=== PATIENT | female | born 1950 | race Caucasian/White ===

== ENCOUNTER → 2017-09-12 13:04 | Outpatient (CLI) | payer MEDICARE, OTHER, SELFPAY ==
--- NOTE | 2017-09-12 13:07 | VDLE_ITS ---
Reason For Study: venous insufficiency RIGHT LEFT CFV is compressible, spontaneous, phasic, CFV is compressible, spontaneous, phasic, competent and demonstrates normal competent, and demonstrates normal augmentation. augmentation. FV is compressible, spontaneous, phasic, FV is compressible, spontaneous, phasic, competent and demonstrates normal competent and demonstrates normal augmentation. augmentation. POP V is compressible, spontaneous, phasic, POP V is compressible, spontaneous, phasic, competent and demonstrates normal competent and demonstrates normal augmentation. augmentation. T/P Trunk is compressible. T/P Trunk is compressible. PTV is compressible. PTV is compressible. RT PerV is compressible. LT PerV is compressible. S-F Junction is competent. S-F Junction is competent. GSV is incompetent throughout for greater GSV is incompetent throughout for greater than .5 seconds. GSV measures .492 x .585 than .5 seconds. GSV measures .483 x .483 cm. cm. SSV is incompetent for greater than .5 SSV is competent. seconds. SSV measures .246 x .286 cm. ASV at the groin is incompetent for greater Procedure than .5 seconds. ASV measures .885 x .840 Exam performed in department. cm. The exam was diagnostic. Interpretation Summary Deep veins of the lower extremities are bilaterally patent and compressible segmentally. There is no evidence of deep vein thrombosis on either side. Valvular competence appears intact within the proximal deep venous systems bilaterally. The greater saphenous veins appear bilaterally patent and compressible segmentally. Sapheno-femoral junctions are bilaterally competent . Segmental valvular incompetence is noted within the greater saphenous veins bilaterally. The right small saphenous vein is patent and incompetent. The left small saphenous vein is patent and competent. The left accessory saphenous vein at the groin is incompetent. Ordering Physician: Kb Hay Performed By: Nadia, Dajuan, RVT
--- NOTE | 2017-09-15 10:54 | LEAS ---
Arterial Study - Arterial Study Arterial Study: This is a 67-year-old female with a history of peripheral arterial occlusive disease. The patient is brought to the noninvasive vascular laboratory at this time for the purpose of bilateral noninvasive lower extremity arterial assessment. Doppler signal assessment was used to evaluate the pulses at ankle level bilaterally. The posterior tibial and dorsalis pedis pulses were triphasic bilaterally. Segmental limb pressures were obtained bilaterally. The right ankle pressure, as determined by posterior tibial pulse, was measured at 196 mmHg. The right ankle pressure, as determined by dorsalis pedis pulse, was measured at 189 mmHg. The right digital pressure was measured at 167 mmHg. The left ankle pressure, as determined by posterior tibial pulse, was measured at 215 mmHg. The left ankle pressure, as determined by dorsalis pedis pulse, was measured at 217 mmHg. The left digital pressure was measured at 156 mmHg. Pulse-volume recordings were obtained bilaterally and segmentally. Waveform amplitudes appeared to be satisfactory at ankle level bilaterally, though slightly diminished at left digital level. Resting ankle-brachial indices were calculated bilaterally. The resting right ankle-brachial index was calculated to be 1.03. The resting left ankle-brachial index was calculated be 1.14. Digital-brachial indices were calculated bilaterally. The right digital-brachial index was calculated to be 0.87. The left digital-brachial index was calculated to be 0.82. Impression: Based upon the findings of this resting noninvasive lower extremity arterial study, there is no evidence of significant atherosclerotic peripheral arterial occlusive disease in the lower extremities bilaterally. Triphasic waveforms were noted at ankle level bilaterally. Resting ankle-brachial indices were bilaterally normal. Digital-brachial indices were also normal bilaterally. In summary, this represents a normal resting noninvasive lower extremity arterial study bilaterally.
--- NOTE | 2017-09-15 10:57 | LEAS_ITS ---
Arterial Study - Arterial Study Arterial Study: This is a 67-year-old female with a history of peripheral arterial occlusive disease. The patient is brought to the noninvasive vascular laboratory at this time for the purpose of bilateral noninvasive lower extremity arterial assessment. Doppler signal assessment was used to evaluate the pulses at ankle level bilaterally. The posterior tibial and dorsalis pedis pulses were triphasic bilaterally. Segmental limb pressures were obtained bilaterally. The right ankle pressure, as determined by posterior tibial pulse, was measured at 196 mmHg. The right ankle pressure, as determined by dorsalis pedis pulse, was measured at 189 mmHg. The right digital pressure was measured at 167 mmHg. The left ankle pressure, as determined by posterior tibial pulse, was measured at 215 mmHg. The left ankle pressure, as determined by dorsalis pedis pulse, was measured at 217 mmHg. The left digital pressure was measured at 156 mmHg. Pulse-volume recordings were obtained bilaterally and segmentally. Waveform amplitudes appeared to be satisfactory at ankle level bilaterally, though slightly diminished at left digital level. Resting ankle-brachial indices were calculated bilaterally. The resting right ankle-brachial index was calculated to be 1.03. The resting left ankle- brachial index was calculated be 1.14. Digital-brachial indices were calculated bilaterally. The right digital- brachial index was calculated to be 0.87. The left digital-brachial index was calculated to be 0.82. Impression: Based upon the findings of this resting noninvasive lower extremity arterial study, there is no evidence of significant atherosclerotic peripheral arterial occlusive disease in the lower extremities bilaterally. Triphasic waveforms were noted at ankle level bilaterally. Resting ankle-brachial indices were bilaterally normal. Digital-brachial indices were also normal bilaterally. In summary, this represents a normal resting noninvasive lower extremity arterial study bilaterally.
== END ==
PROVIDERS: Visit Provider Surgery
DX: I73.9 Peripheral vascular disease, unspecified (principal); M79.89 Other specified soft tissue disorders; M79.606 Pain in leg, unspecified; I87.2 Venous insufficiency (chronic) (peripheral); I83.10 Varicose veins of unspecified lower extremity with inflammation
CPT/HCPCS: 93922; 93970

== ENCOUNTER 2017-10-08 10:15 | Outpatient (RCR) | payer MEDICARE, OTHER, SELFPAY ==
[2017-09-17 09:04] VITALS: BP 173/83; PULSE 58; RESP 18; TEMP 36.3; BMI 88.9
--- NOTE | 2017-09-17 10:18 | PCM.WC.HP ---
(1) Chronic venous insufficiency Status: Chronic Current Visit: Yes Code(s): I87.2 - Venous insufficiency (chronic) (peripheral) (2) Varicose veins with inflammation Status: Chronic Current Visit: Yes Code(s): I83.10 - Varicose veins of unspecified lower extremity with inflammation (3) Pain in both lower legs Status: Chronic Current Visit: Yes Code(s): M79.661 - Pain in right lower leg; M79.662 - Pain in left lower leg (4) Leg swelling Status: Chronic Current Visit: Yes Code(s): M79.89 - Other specified soft tissue disorders (5) MVP (mitral valve prolapse) Status: Chronic Current Visit: No Code(s): I34.1 - Nonrheumatic mitral (valve) prolapse (6) Hyperlipidemia Status: Chronic Current Visit: No Code(s): E78.5 - Hyperlipidemia, unspecified (7) Arthritis Status: Chronic Current Visit: No Code(s): M19.90 - Unspecified osteoarthritis, unspecified site (8) Obesity Status: Chronic Current Visit: No Code(s): E66.9 - Obesity, unspecified (9) History of skin cancer Status: Chronic Current Visit: No Code(s): Z85.828 - Personal history of other malignant neoplasm of skin History of Present Illness Date of Service: 09/17/17 Chief Complaint: Venous insufficiency, varicose veins with inflammation, leg pain, leg swelling History of Wound: This is a 67-year-old female with a long-standing history of chronic venous insufficiency, varicose veins with inflammation, leg pain, and leg swelling in her lower extremities. Her symptoms have been present for over 3 years. She describes pain and discomfort in her lower extremities, associated with swelling. Her symptoms are more severe in the left lower extremity. The patient sleeps on a flat mattress at night. She wears knee-high graduated compression stockings of 15-20 mmHg compression daily. 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 She denies a history of thrombophlebitis. She has undergone no prior vein procedures in the past. Past Medical History Past Medical History: Chronic Problems (Last Updated 07/03/17 @ 09:57 by Ladi Huizar) Chronic venous insufficiency (Chronic) Varicose veins with inflammation (Chronic) Pain in both lower legs (Chronic) Leg swelling (Chronic) MVP (mitral valve prolapse) (Chronic) Hyperlipidemia (Chronic) Arthritis (Chronic) Obesity (Chronic) History of skin cancer (Chronic) Past Medical History: Patient has a history of mitral valve prolapse, basal cell skin cancer, and arthritis which affects her back and hands. She has a history of hyperlipidemia, but does not tolerate statin therapy. The patient's history is negative for congestive heart failure, myocardial infarction, hypertension, diabetes mellitus, cerebrovascular accident, renal disease, pulmonary disease, thyroid disease, gastroesophageal reflux disease, and peripheral arterial occlusive disease. Surgical History: - - The patient has undergone open reduction and internal fixation of a right ankle fracture approximately 10 years ago. She is a Ab0 Allergies/Adverse Reactions: Allergies hydrocodone Adverse Reaction (Verified 07/03/17 09:58) Other Home Medications: Ambulatory Orders Medication Instructions Recorded Ascorbic Acid/Ascorbate Sodium 500 mg PO 09/17/17 [Vit C-Palma Hips 500 mg Chew Tb] Horse [place] Seed [Horse 300 mg PO 09/17/17 [place]] - Family History Maternal Family History: Family History (Last Updated 07/03/17 @ 09:57 by Ladi Huizar) Mother Diabetes Heart disease Asthma - - The patient's father at the age of 72 with a history of heart disease and diabetes mellitus. Patient's mother is living, age 90, with a history of mitral valve prolapse and hyperlipidemia. Lives: Alone Smoking Status: Never smoker Tobacco Use: Non-smoker Alcohol: Occasional Drugs: None Review of Systems Constitutional: Denies: Chills, Fever, Weight Change Eyes: Denies: Pain, Vision Change HEENT: Denies: Difficulty Hearing, Difficulty Swallowing, Sinus Congestion Cardiovascular: Denies: Chest Pain, Palpitations Respiratory: Denies: Cough, Shortness of Breath Gastrointestinal: Denies: Diarrhea, Nausea, Vomiting Genitourinary: Denies: Dysuria, Hematuria Endocrine: Denies: Heat/ Cold Intolerance, Polydipsia, Polyuria Hematologic/ Lymphatic: Denies: Easy Bruising, Easy Bleeding - Physical Exam Vital Signs Temp Pulse Resp BP 97.3 F L 58 L 18 173/83 H 09/17/17 09:04 09/17/17 09:04 09/17/17 09:04 09/17/17 09:04 General: Alert, Oriented x3, Cooperative, No apparent distress, Well developed, Well nourished HEENT: Atraumatic, PERRLA, EOMI, Normocephalic Oral: Moist Mucosa, No Gingival or Mucosal Lesions/ Ulcerations Neck: Supple, No JVD, Negative Carotid Bruits, Negative Hepatojugular Reflux, No Nodes, No Nuchal Rigidity, Trachea Midline Lungs: Clear to auscultation, Normal air movement, No rhonchi, No wheeze, No rales Cardiovascular: Regular rate, Regular Rhythm, Normal S1, Normal S2, No murmurs, No Ectopic Activity Abdomen: Soft, Non Tender, Non-Distended Extremities: No clubbing, No cyanosis, No Calf Tenderness, - - Bilateral lower extremity edema is noted. Scattered varicosities are present. Numerous scattered excoriations are noted in the left lower extremity between the and ankle. Circumference measurements are documented elsewhere. No sign of infection or cellulitis. Wound Measurements and Assessment WC - Nurse 1 - General Ulcer Measurement Start: 09/17/17 08:50 Freq: Status: Active Protocol: Activity Type Activity Date Activity User E-Sign Co-Sign Detail Recorded Client Recorded Date Recorded By Document 09/17/17 09:04 DL [id number] 09/17/17 09:21 DL 09/17/17 09:04 Wound Center Nurse 1 [Ulcer Assessment] #1 LLE Cluster -Current Size (cm) - Length 19 -Current Size (cm) - Width 13 -Current Size (cm) - Depth 0.1 -Total Square Cm 247 -Photo Taken Yes -Classification - Thickness Partial Thickness -Exudate Amt None Present (0 %) -Wound Margin Indistinct, Non -Visible -Granulation Amt None Present (0 %) -Necrosis Amt Small (1-33%) -Necrotic Tissue Type Adherent Slough -Structure Exposed N/A -Texture (Sheyla-wound Skin Appearance) Excoriation -Moisture (Sheyla-wound Skin Appearance Dry/Scaly ) -Color (Sheyla-wound Skin Appearance) Hemosiderin Staining -Temperature (Sheyla-wound Skin No Abnormality Appearance) (Pt Warm) -Ulcer Cleansing Wound Cleanser [Edema Assessment] -Right Calf (cm) 44 -Right Ankle (cm) 25.5 -Left Calf (cm) 45 -Left Ankle (cm) 26 WC - Nurse 2 - General Ulcer CM Notes Start: 09/17/17 08:50 Freq: Status: Active Protocol: Activity Type Activity Date Activity User E-Sign Co-Sign Detail Recorded Client Recorded Date Recorded By Document 09/17/17 09:59 [id number] 09/17/17 10:12 09/17/17 09:59 Wound Center Nurse 2 [Procedure/Treatment] #1 [facility] Cluster -Time 09:59 -Correct Patient Yes -Correct Side, Site, Position Yes -Correct Procedure Yes -Wound/Ulcer Outcome Not Healed -Ulcer Cleansing Rinsed/ Irrigated with Saline -Foul Odor after Cleansing No -Bioengineered Tissue No -Bleeding Controlled with NA -Treatment Response Procedure Tolerated Well [See Physician Procedure note for Specifics] Pain Scale: 0-10 Numeric [Pain] -Is Patient Pain Free? Yes Musculoskeletal: No Muscle Wasting Neurological: Cranial nerves II-XII grossly intact, Neuro grossly intact Psych/Mental Status: Normal Affect, Appropriate, Alert and oriented to time, place, person, mood and affect Debridement Note Post-Debridement Measurements/Treatment WC - Nurse 2 - General Ulcer CM Notes Start: 09/17/17 08:50 Freq: Status: Active Protocol: Activity Type Activity Date Activity User E-Sign Co-Sign Detail Recorded Client Recorded Date Recorded By Document 09/17/17 09:59 [id number] 09/17/17 10:12 09/17/17 09:59 Wound Center Nurse 2 #1 [facility] Cluster -Time 09:59 -Correct Patient Yes -Correct Side, Site, Position Yes -Correct Procedure Yes -Wound/Ulcer Outcome Not Healed -Ulcer Cleansing Rinsed/ Irrigated with Saline -Foul Odor after Cleansing No -Bioengineered Tissue No -Bleeding Controlled with NA -Treatment Response Procedure Tolerated Well Pain Scale: 0-10 Numeric Is Patient Pain Free? Yes No debridement was completed today Assessment/Plan Active Problems (Last Updated 07/03/17 @ 09:57 by Ladi Huizar) Chronic venous insufficiency (Chronic) Varicose veins with inflammation (Chronic) Pain in both lower legs (Chronic) Leg swelling (Chronic) Assessment: This is a 67-year-old female with bilateral lower extremity swelling, edema, veins with inflammation, and chronic venous insufficiency. Other medical problems are listed above. The patient has undergone a venous duplex examination within the last week, revealing incompetence of the right great saphenous vein, the right small saphenous vein, the left great saphenous vein, and the left accessory saphenous vein. A noninvasive lower extremity arterial study reveals no evidence of significant arterial occlusive disease. Plan: We are to implement conservative treatment measures relative to the patient's lower extremity venous disease. These measures have been discussed with the patient thoroughly. She is to avoid idle standing and sitting. She is to remain active. Weight loss has been recommended, and the patient has lost 10 pounds in recent weeks. The patient is to elevate her lower extremities as much as possible, and to continue sleeping in a recumbent position at night. We are to initiate the use of compression to the lower extremities. In the right lower extremity, we are to use a 3M 2 layer compression wrap. A multilayer Unna boot will be used in the left lower extremity. Patient will return twice weekly for change of her wraps. Return in 1 week for reevaluation. Influenza vaccine was not administered today. The patient is not a smoker. She weighs 235 pounds. She stands 5 feet 4 inches tall. BMI is 40.3. This places her in a class III category, and weight loss has been recommended. She has been advised to collaborate with her primary care physician in terms of weight loss options.
--- NOTE | 2017-09-17 10:29 | HP.PCM_ITS ---
(1) Chronic venous insufficiency Status: Chronic Current Visit: Yes Code(s): I87.2 - Venous insufficiency ( chronic) (peripheral) (2) Varicose veins with inflammation Status: Chronic Current Visit: Yes Code(s): I83.10 - Varicose veins of unspecified lower extremity with inflammation (3) Pain in both lower legs Status: Chronic Current Visit: Yes Code(s): M79.661 - Pain in right lower leg; M79.662 - Pain in left lower leg (4) Leg swelling Status: Chronic Current Visit: Yes Code(s): M79.89 - Other specified soft tissue disorders (5) MVP (mitral valve prolapse) Status: Chronic Current Visit: No Code(s): I34.1 - Nonrheumatic mitral ( valve) prolapse (6) Hyperlipidemia Status: Chronic Current Visit: No Code(s): E78.5 - Hyperlipidemia, unspecified (7) Arthritis Status: Chronic Current Visit: No Code(s): M19.90 - Unspecified osteoarthritis, unspecified site (8) Obesity Status: Chronic Current Visit: No Code(s): E66.9 - Obesity, unspecified (9) History of skin cancer Status: Chronic Current Visit: No Code(s): Z85.828 - Personal history of other malignant neoplasm of skin History of Present Illness Date of Service: 09/17/17 Chief Complaint: Venous insufficiency, varicose veins with inflammation, leg pain, leg swelling History of Wound: This is a 67-year-old female with a long-standing history of chronic venous insufficiency, varicose veins with inflammation, leg pain, and leg swelling in her lower extremities. Her symptoms have been present for over 3 years. She describes pain and discomfort in her lower extremities, associated with swelling. Her symptoms are more severe in the left lower extremity. The patient sleeps on a flat mattress at night. She wears knee- high graduated compression stockings of 15-20 mmHg compression daily. 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 She denies a history of thrombophlebitis. She has undergone no prior vein procedures in the past. Past Medical History Past Medical History: Chronic Problems (Last Updated 07/03/17 @ 09:57 by Ladi Huizar) Chronic venous insufficiency (Chronic) Varicose veins with inflammation (Chronic) Pain in both lower legs (Chronic) Leg swelling (Chronic) MVP (mitral valve prolapse) (Chronic) Hyperlipidemia (Chronic) Arthritis (Chronic) Obesity (Chronic) History of skin cancer (Chronic) Past Medical History: Patient has a history of mitral valve prolapse, basal cell skin cancer, and arthritis which affects her back and hands. She has a history of hyperlipidemia, but does not tolerate statin therapy. The patient's history is negative for congestive heart failure, myocardial infarction, hypertension, diabetes mellitus, cerebrovascular accident, renal disease, pulmonary disease, thyroid disease, gastroesophageal reflux disease, and peripheral arterial occlusive disease. Surgical History: - - The patient has undergone open reduction and internal fixation of a right ankle fracture approximately 10 years ago. She is a Ab0 Allergies/Adverse Reactions: Allergies hydrocodone Adverse Reaction (Verified 07/03/17 09:58) Other Home Medications: Ambulatory Orders Medication Instructions Recorded Ascorbic Acid/Ascorbate Sodium 500 mg PO 09/17/17 [Vit C-Palma Hips 500 mg Chew Tb] Horse [place] Seed [Horse 300 mg PO 09/17/17 [place]] - Family History Maternal Family History: Family History (Last Updated 07/03/17 @ 09:57 by Ladi Huizar) Mother Diabetes Heart disease Asthma - - The patient's father at the age of 72 with a history of heart disease and diabetes mellitus. Patient's mother is living, age 90, with a history of mitral valve prolapse and hyperlipidemia. Lives: Alone Smoking Status: Never smoker Tobacco Use: Non-smoker Alcohol: Occasional Drugs: None Review of Systems Constitutional: Denies: Chills, Fever, Weight Change Eyes: Denies: Pain, Vision Change HEENT: Denies: Difficulty Hearing, Difficulty Swallowing, Sinus Congestion Cardiovascular: Denies: Chest Pain, Palpitations Respiratory: Denies: Cough, Shortness of Breath Gastrointestinal: Denies: Diarrhea, Nausea, Vomiting Genitourinary: Denies: Dysuria, Hematuria Endocrine: Denies: Heat/ Cold Intolerance, Polydipsia, Polyuria Hematologic/ Lymphatic: Denies: Easy Bruising, Easy Bleeding - Physical Exam Vital Signs Temp Pulse Resp BP 97.3 F L 58 L 18 173/83 H 09/17/17 09:04 09/17/17 09:04 09/17/17 09:04 09/17/17 09:04 General: Alert, Oriented x3, Cooperative, No apparent distress, Well developed, Well nourished HEENT: Atraumatic, PERRLA, EOMI, Normocephalic Oral: Moist Mucosa, No Gingival or Mucosal Lesions/ Ulcerations Neck: Supple, No JVD, Negative Carotid Bruits, Negative Hepatojugular Reflux, No Nodes, No Nuchal Rigidity, Trachea Midline Lungs: Clear to auscultation, Normal air movement, No rhonchi, No wheeze, No rales Cardiovascular: Regular rate, Regular Rhythm, Normal S1, Normal S2, No murmurs, No Ectopic Activity Abdomen: Soft, Non Tender, Non-Distended Extremities: No clubbing, No cyanosis, No Calf Tenderness, - - Bilateral lower extremity edema is noted. Scattered varicosities are present. Numerous scattered excoriations are noted in the left lower extremity between the and ankle. Circumference measurements are documented elsewhere. No sign of infection or cellulitis. Wound Measurements and Assessment WC - Nurse 1 - General Ulcer Measurement Start: 09/17/17 08:50 Freq: Status: Active Protocol: Activity Type Activity Date Activity User E-Sign Co-Sign Detail Recorded Client Recorded Date Recorded By Document 09/17/17 09:04 DL [id number] 09/17/17 09:21 DL 09/17/17 09:04 Wound Center Nurse 1 [Ulcer Assessment] #1 LLE Cluster -Current Size (cm) - Length 19 -Current Size (cm) - Width 13 -Current Size (cm) - Depth 0.1 -Total Square Cm 247 -Photo Taken Yes -Classification - Thickness Partial Thickness -Exudate Amt None Present (0 %) -Wound Margin Indistinct, Non -Visible -Granulation Amt None Present (0 %) -Necrosis Amt Small (1-33%) -Necrotic Tissue Type Adherent Slough -Structure Exposed N/A -Texture (Sheyla-wound Skin Appearance) Excoriation -Moisture (Sheyla-wound Skin Appearance Dry/Scaly ) -Color (Sheyla-wound Skin Appearance) Hemosiderin Staining -Temperature (Sheyla-wound Skin No Abnormality Appearance) (Pt Warm) -Ulcer Cleansing Wound Cleanser [Edema Assessment] -Right Calf (cm) 44 -Right Ankle (cm) 25.5 -Left Calf (cm) 45 -Left Ankle (cm) 26 WC - Nurse 2 - General Ulcer CM Notes Start: 09/17/17 08:50 Freq: Status: Active Protocol: Activity Type Activity Date Activity User E-Sign Co-Sign Detail Recorded Client Recorded Date Recorded By Document 09/17/17 09:59 [email or web address] 09/17/17 10:12 09/17/17 09:59 Wound Center Nurse 2 [Procedure/Treatment] #1 [facility] Cluster -Time 09:59 -Correct Patient Yes -Correct Side, Site, Position Yes -Correct Procedure Yes -Wound/Ulcer Outcome Not Healed -Ulcer Cleansing Rinsed/ Irrigated with Saline -Foul Odor after Cleansing No -Bioengineered Tissue No -Bleeding Controlled with NA -Treatment Response Procedure Tolerated Well [See Physician Procedure note for Specifics] Pain Scale: 0-10 Numeric [Pain] -Is Patient Pain Free? Yes Musculoskeletal: No Muscle Wasting Neurological: Cranial nerves II-XII grossly intact, Neuro grossly intact Psych/Mental Status: Normal Affect, Appropriate, Alert and oriented to time, place, person, mood and affect Debridement Note Post-Debridement Measurements/Treatment WC - Nurse 2 - General Ulcer CM Notes Start: 09/17/17 08:50 Freq: Status: Active Protocol: Activity Type Activity Date Activity User E-Sign Co-Sign Detail Recorded Client Recorded Date Recorded By Document 09/17/17 09:59 [id number] 09/17/17 10:12 09/17/17 09:59 Wound Center Nurse 2 #1 [facility] Cluster -Time 09:59 -Correct Patient Yes -Correct Side, Site, Position Yes -Correct Procedure Yes -Wound/Ulcer Outcome Not Healed -Ulcer Cleansing Rinsed/ Irrigated with Saline -Foul Odor after Cleansing No -Bioengineered Tissue No -Bleeding Controlled with NA -Treatment Response Procedure Tolerated Well Pain Scale: 0-10 Numeric Is Patient Pain Free? Yes No debridement was completed today Assessment/Plan Active Problems (Last Updated 07/03/17 @ 09:57 by Ladi Huizar) Chronic venous insufficiency (Chronic) Varicose veins with inflammation (Chronic) Pain in both lower legs (Chronic) Leg swelling (Chronic) Assessment: This is a 67-year-old female with bilateral lower extremity swelling , edema, veins with inflammation, and chronic venous insufficiency. Other medical problems are listed above. The patient has undergone a venous duplex examination within the last week, revealing incompetence of the right great saphenous vein, the right small saphenous vein, the left great saphenous vein, and the left accessory saphenous vein. A noninvasive lower extremity arterial study reveals no evidence of significant arterial occlusive disease. Plan: We are to implement conservative treatment measures relative to the patient's lower extremity venous disease. These measures have been discussed with the patient thoroughly. She is to avoid idle standing and sitting. She is to remain active. Weight loss has been recommended, and the patient has lost 10 pounds in recent weeks. The patient is to elevate her lower extremities as much as possible, and to continue sleeping in a recumbent position at night. We are to initiate the use of compression to the lower extremities. In the right lower extremity, we are to use a 3M 2 layer compression wrap. A multilayer Unna boot will be used in the left lower extremity. Patient will return twice weekly for change of her wraps. Return in 1 week for reevaluation. Influenza vaccine was not administered today. The patient is not a smoker. She weighs 235 pounds. She stands 5 feet 4 inches tall. BMI is 40.3. This places her in a class III category, and weight loss has been recommended. She has been advised to collaborate with her primary care physician in terms of weight loss options.
[2017-09-18 15:46] VITALS: BP 161/87; PULSE 67; RESP 20; TEMP 36.4; BMI 88.9
--- NOTE | 2017-09-19 10:52 | WC ---
09/18/17 AM: Call received from patient voicing concerns over getting her leg wraps wet. 3M 2 Layer wrap applied to the RLE, and UNNA Boot to the LLE applied on Saturday after seeing Dr. Hay. Instructions given to patient in regards to keeping dressings dry and not getting wet. She did verify understanding of this teaching prior discharge from her first visit on Saturday. 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 She applied this to her legs, but was not able to get a good enough seal at the top of her lower legs when she showered. Unna boot removed from the LLE showing marked improvement over Saturday's exam. Reinstructed not to get wraps wet. She is to return on Saturday for compression wrap changes. She was told to removed compression wraps, shower, and come in for her nurse visit. Understanding was acknowledged.
[2017-09-20 13:14] VITALS: BP 184/80; PULSE 65; RESP 18; TEMP 35.5; BMI 88.9
[2017-09-24 08:09] VITALS: BP 188/91; PULSE 61; RESP 18; TEMP 35.8; BMI 88.9
--- NOTE | 2017-09-24 08:32 | PCM.WC.HP ---
(1) Chronic venous insufficiency Status: Chronic Current Visit: Yes Code(s): I87.2 - Venous insufficiency (chronic) (peripheral) (2) Varicose veins with inflammation Status: Chronic Current Visit: Yes Code(s): I83.10 - Varicose veins of unspecified lower extremity with inflammation (3) Pain in both lower legs Status: Chronic Current Visit: Yes Code(s): M79.661 - Pain in right lower leg; M79.662 - Pain in left lower leg (4) Leg swelling Status: Chronic Current Visit: Yes Code(s): M79.89 - Other specified soft tissue disorders (5) MVP (mitral valve prolapse) Status: Chronic Current Visit: No Code(s): I34.1 - Nonrheumatic mitral (valve) prolapse (6) Hyperlipidemia Status: Chronic Current Visit: No Code(s): E78.5 - Hyperlipidemia, unspecified (7) Arthritis Status: Chronic Current Visit: No Code(s): M19.90 - Unspecified osteoarthritis, unspecified site (8) Obesity Status: Chronic Current Visit: No Code(s): E66.9 - Obesity, unspecified (9) History of skin cancer Status: Chronic Current Visit: No Code(s): Z85.828 - Personal history of other malignant neoplasm of skin History of Present Illness Date of Service: 09/24/17 Chief Complaint: Venous insufficiency, varicose veins with inflammation, leg pain, leg swelling History of Wound: This is a 67-year-old female with a long-standing history of chronic venous insufficiency, varicose veins with inflammation, leg pain, and leg swelling in her lower extremities. Her symptoms have been present for over 3 years. She describes pain and discomfort in her lower extremities, associated with swelling. Her symptoms are more severe in the left lower extremity. The patient sleeps on a flat mattress at night. She wears knee-high graduated compression stockings of 15-20 mmHg compression daily. 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 She denies a history of thrombophlebitis. She has undergone no prior vein procedures in the past. She initially presented with superficial ulcerations on the left calf, which were a manifestation of her chronic venous disease. As result of initial management, which have included compression wraps, and the use of an Unna boot in the left lower extremity, there has been significant improvement. Past Medical History Past Medical History: Chronic Problems (Last Updated 07/03/17 @ 09:57 by Ladi Huizar) Chronic venous insufficiency (Chronic) Varicose veins with inflammation (Chronic) Pain in both lower legs (Chronic) Leg swelling (Chronic) MVP (mitral valve prolapse) (Chronic) Hyperlipidemia (Chronic) Arthritis (Chronic) Obesity (Chronic) History of skin cancer (Chronic) Surgical History: - - The patient has undergone open reduction and internal fixation of a right ankle fracture approximately 10 years ago. She is a Ab0 Allergies/Adverse Reactions: Allergies hydrocodone Adverse Reaction (Verified 07/03/17 09:58) Other Home Medications: Ambulatory Orders Medication Instructions Recorded Ascorbic Acid/Ascorbate Sodium 500 mg PO 09/17/17 [Vit C-Palma Hips 500 mg Chew Tb] Horse [place] Seed [Horse 300 mg PO 09/17/17 [place]] - Family History Maternal Family History: Family History (Last Updated 07/03/17 @ 09:57 by Ladi Huizar) Mother Diabetes Heart disease Asthma - - The patient's father at the age of 72 with a history of heart disease and diabetes mellitus. Patient's mother is living, age 90, with a history of mitral valve prolapse and hyperlipidemia. Lives: Alone Smoking Status: Never smoker Tobacco Use: Non-smoker Alcohol: Occasional Drugs: None Review of Systems Constitutional: Denies: Chills, Fever, Weight Change Eyes: Denies: Pain, Vision Change HEENT: Denies: Difficulty Hearing, Difficulty Swallowing, Sinus Congestion Cardiovascular: Denies: Chest Pain, Palpitations Respiratory: Denies: Cough, Shortness of Breath Gastrointestinal: Denies: Diarrhea, Nausea, Vomiting Genitourinary: Denies: Dysuria, Hematuria Endocrine: Denies: Heat/ Cold Intolerance, Polydipsia, Polyuria Hematologic/ Lymphatic: Denies: Easy Bruising, Easy Bleeding - Physical Exam Vital Signs Temp Pulse Resp BP 96.5 F L 61 18 188/91 H 09/24/17 08:09 09/24/17 08:09 09/24/17 08:09 09/24/17 08:09 General: Alert, Oriented x3, Cooperative, No apparent distress, Well developed, Well nourished HEENT: Atraumatic, PERRLA, EOMI, Normocephalic Oral: Moist Mucosa Neck: No JVD Lungs: Normal air movement Abdomen: Non-Distended Extremities: No clubbing, No cyanosis, No Calf Tenderness, - - The swelling and edema in the lower extremities is much improved. Additionally, the superficial ulcerations in the left lower extremity are also much improved, and now nearly resolved. Circumference measurements are documented elsewhere. Wound Measurements and Assessment WC - Nurse 1 - General Ulcer Measurement Start: 09/17/17 08:50 Freq: Status: Active Protocol: Activity Type Activity Date Activity User E-Sign Co-Sign Detail Recorded Client Recorded Date Recorded By Document 09/24/17 08:09 DL [id number] 09/24/17 08:15 DL 09/24/17 08:09 Wound Center Nurse 1 [Ulcer Assessment] #1 LLE Cluster -Current Size (cm) - Length 23 -Current Size (cm) - Width 12.5 -Current Size (cm) - Depth 0.1 -Total Square Cm 287.5 -Photo Taken No -Exudate Amt None Present (0 %) -Wound Margin Indistinct, Non -Visible -Granulation Amt Large (67-100%) -Granulation Quality [place] -Necrosis Amt None Present (0 %) -Structure Exposed N/A -Texture (Sheyla-wound Skin Appearance) Excoriation Scarring -Moisture (Sheyla-wound Skin Appearance Dry/Scaly ) -Color (Sheyla-wound Skin Appearance) No Abnormality -Temperature (Sheyla-wound Skin No Abnormality Appearance) (Pt Warm) -Tenderness on Palpation (Sheyla-wound No Skin Appearance) -Ulcer Cleansing Not Cleansed -Foul Odor after Cleansing No [Edema Assessment] -Right Calf (cm) 44.2 -Right Ankle (cm) 25.5 -Left Calf (cm) 45 -Left Ankle (cm) 25.1 WC - Nurse 2 - General Ulcer CM Notes Start: 09/17/17 08:50 Freq: Status: Active Protocol: Activity Type Activity Date Activity User E-Sign Co-Sign Detail Recorded Client Recorded Date Recorded By Document 09/24/17 08:24 JS [id number] 09/24/17 08:27 JS 09/24/17 08:24 Wound Center Nurse 2 [Procedure/Treatment] #1 LLE Cluster -Time 08:26 -Correct Patient Yes -Correct Side, Site, Position Yes -Correct Procedure Yes -Procedure Performed No -Wound/Ulcer Outcome Not Healed -Ulcer Cleansing Not Cleansed -Foul Odor after Cleansing No -Bioengineered Tissue No [See Physician Procedure note for Specifics] Pain Scale: 0-10 Numeric [Pain] -Is Patient Pain Free? Yes Musculoskeletal: No Muscle Wasting Neurological: Cranial nerves II-XII grossly intact, Neuro grossly intact Psych/Mental Status: Normal Affect, Appropriate, Alert and oriented to time, place, person, mood and affect Debridement Note Post-Debridement Measurements/Treatment WC - Nurse 2 - General Ulcer CM Notes Start: 09/17/17 08:50 Freq: Status: Active Protocol: Activity Type Activity Date Activity User E-Sign Co-Sign Detail Recorded Client Recorded Date Recorded By Document 09/17/17 09:59 [id number] 09/17/17 10:12 JS Document 09/24/17 08:24 [id number] 09/24/17 08:27 JS 09/17/17 09/24/17 09:59 08:24 Wound Center Nurse 2 #1 LLE Cluster -Time 09:59 08:26 -Correct Patient Yes Yes -Correct Side, Site, Position Yes Yes -Correct Procedure Yes Yes -Procedure Performed No -Wound/Ulcer Outcome Not Healed Not Healed -Ulcer Cleansing Rinsed/ Not Cleansed Irrigated with Saline -Foul Odor after Cleansing No No -Bioengineered Tissue No No -Bleeding Controlled with NA -Treatment Response Procedure Tolerated Well Pain Scale: 0-10 Numeric Is Patient Pain Free? Yes Yes No debridement was completed today Assessment/Plan Active Problems (Last Updated 07/03/17 @ 09:57 by Ladi Huizar) Chronic venous insufficiency (Chronic) Varicose veins with inflammation (Chronic) Pain in both lower legs (Chronic) Leg swelling (Chronic) Assessment: This is a 67-year-old female with bilateral lower extremity swelling, edema, veins with inflammation, and chronic venous insufficiency. Other medical problems are listed above. The patient has undergone a venous duplex examination within the last week, revealing incompetence of the right great saphenous vein, the right small saphenous vein, the left great saphenous vein, and the left accessory saphenous vein. A noninvasive lower extremity arterial study reveals no evidence of significant arterial occlusive disease. As a result of compression wraps implemented to both lower extremities, an Unna boot in the left lower extremity, and other conservative measures which have included leg elevation, avoidance of idle standing and sitting, active lifestyle, and efforts at weight loss, there has been significant improvement. The patient's venous disease appears to cause itching, and reactive scratching on the part of the patient has, in the past, contributed to the development of excoriations and ulcerations. The use of compression wraps, remaining in place daily, appears to thwart her impulse to scratch. Additionally, the patient relates restlessness in her lower extremities, which may well be related to her chronic venous disease. Plan: We are to continue conservative treatment measures relative to the patient's lower extremity venous disease. These measures have been discussed with the patient thoroughly. She is to avoid idle standing and sitting. She is to remain active. Weight loss has been recommended, and the patient has lost 10 pounds in recent weeks. The patient is to elevate her lower extremities as much as possible, and to continue sleeping in a recumbent position at night. We are to continue the use of compression to the lower extremities. In the right lower extremity, we are to use a 3M 2 layer compression wrap. A multilayer Unna boot will be used in the left lower extremity. Patient will return twice weekly for change of her wraps. Return in 1 week for reevaluation. Influenza vaccine was not administered today. The patient is not a smoker. She weighs 235 pounds. She stands 5 feet 4 inches tall. BMI is 40.3. This places her in a class III category, and weight loss has been recommended. She has been advised to collaborate with her primary care physician in terms of weight loss options.
--- NOTE | 2017-09-24 08:39 | HP.PCM_ITS ---
(1) Chronic venous insufficiency Status: Chronic Current Visit: Yes Code(s): I87.2 - Venous insufficiency ( chronic) (peripheral) (2) Varicose veins with inflammation Status: Chronic Current Visit: Yes Code(s): I83.10 - Varicose veins of unspecified lower extremity with inflammation (3) Pain in both lower legs Status: Chronic Current Visit: Yes Code(s): M79.661 - Pain in right lower leg; M79.662 - Pain in left lower leg (4) Leg swelling Status: Chronic Current Visit: Yes Code(s): M79.89 - Other specified soft tissue disorders (5) MVP (mitral valve prolapse) Status: Chronic Current Visit: No Code(s): I34.1 - Nonrheumatic mitral ( valve) prolapse (6) Hyperlipidemia Status: Chronic Current Visit: No Code(s): E78.5 - Hyperlipidemia, unspecified (7) Arthritis Status: Chronic Current Visit: No Code(s): M19.90 - Unspecified osteoarthritis, unspecified site (8) Obesity Status: Chronic Current Visit: No Code(s): E66.9 - Obesity, unspecified (9) History of skin cancer Status: Chronic Current Visit: No Code(s): Z85.828 - Personal history of other malignant neoplasm of skin History of Present Illness Date of Service: 09/24/17 Chief Complaint: Venous insufficiency, varicose veins with inflammation, leg pain, leg swelling History of Wound: This is a 67-year-old female with a long-standing history of chronic venous insufficiency, varicose veins with inflammation, leg pain, and leg swelling in her lower extremities. Her symptoms have been present for over 3 years. She describes pain and discomfort in her lower extremities, associated with swelling. Her symptoms are more severe in the left lower extremity. The patient sleeps on a flat mattress at night. She wears knee- high graduated compression stockings of 15-20 mmHg compression daily. 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 She denies a history of thrombophlebitis. She has undergone no prior vein procedures in the past. She initially presented with superficial ulcerations on the left calf, which were a manifestation of her chronic venous disease. As result of initial management, which have included compression wraps, and the use of an Unna boot in the left lower extremity, there has been significant improvement. Past Medical History Past Medical History: Chronic Problems (Last Updated 07/03/17 @ 09:57 by Ladi Huizar) Chronic venous insufficiency (Chronic) Varicose veins with inflammation (Chronic) Pain in both lower legs (Chronic) Leg swelling (Chronic) MVP (mitral valve prolapse) (Chronic) Hyperlipidemia (Chronic) Arthritis (Chronic) Obesity (Chronic) History of skin cancer (Chronic) Surgical History: - - The patient has undergone open reduction and internal fixation of a right ankle fracture approximately 10 years ago. She is a Ab0 Allergies/Adverse Reactions: Allergies hydrocodone Adverse Reaction (Verified 07/03/17 09:58) Other Home Medications: Ambulatory Orders Medication Instructions Recorded Ascorbic Acid/Ascorbate Sodium 500 mg PO 09/17/17 [Vit C-Palma Hips 500 mg Chew Tb] Horse [place] Seed [Horse 300 mg PO 09/17/17 [place]] - Family History Maternal Family History: Family History (Last Updated 07/03/17 @ 09:57 by Ladi Huizar) Mother Diabetes Heart disease Asthma - - The patient's father at the age of 72 with a history of heart disease and diabetes mellitus. Patient's mother is living, age 90, with a history of mitral valve prolapse and hyperlipidemia. Lives: Alone Smoking Status: Never smoker Tobacco Use: Non-smoker Alcohol: Occasional Drugs: None Review of Systems Constitutional: Denies: Chills, Fever, Weight Change Eyes: Denies: Pain, Vision Change HEENT: Denies: Difficulty Hearing, Difficulty Swallowing, Sinus Congestion Cardiovascular: Denies: Chest Pain, Palpitations Respiratory: Denies: Cough, Shortness of Breath Gastrointestinal: Denies: Diarrhea, Nausea, Vomiting Genitourinary: Denies: Dysuria, Hematuria Endocrine: Denies: Heat/ Cold Intolerance, Polydipsia, Polyuria Hematologic/ Lymphatic: Denies: Easy Bruising, Easy Bleeding - Physical Exam Vital Signs Temp Pulse Resp BP 96.5 F L 61 18 188/91 H 09/24/17 08:09 09/24/17 08:09 09/24/17 08:09 09/24/17 08:09 General: Alert, Oriented x3, Cooperative, No apparent distress, Well developed, Well nourished HEENT: Atraumatic, PERRLA, EOMI, Normocephalic Oral: Moist Mucosa Neck: No JVD Lungs: Normal air movement Abdomen: Non-Distended Extremities: No clubbing, No cyanosis, No Calf Tenderness, - - The swelling and edema in the lower extremities is much improved. Additionally, the superficial ulcerations in the left lower extremity are also much improved, and now nearly resolved. Circumference measurements are documented elsewhere. Wound Measurements and Assessment WC - Nurse 1 - General Ulcer Measurement Start: 09/17/17 08:50 Freq: Status: Active Protocol: Activity Type Activity Date Activity User E-Sign Co-Sign Detail Recorded Client Recorded Date Recorded By Document 09/24/17 08:09 DL [id number] 09/24/17 08:15 DL 09/24/17 08:09 Wound Center Nurse 1 [Ulcer Assessment] #1 LLE Cluster -Current Size (cm) - Length 23 -Current Size (cm) - Width 12.5 -Current Size (cm) - Depth 0.1 -Total Square Cm 287.5 -Photo Taken No -Exudate Amt None Present (0 %) -Wound Margin Indistinct, Non -Visible -Granulation Amt Large (67-100%) -Granulation Quality [place] -Necrosis Amt None Present (0 %) -Structure Exposed N/A -Texture (Sheyla-wound Skin Appearance) Excoriation Scarring -Moisture (Sheyla-wound Skin Appearance Dry/Scaly ) -Color (Sheyla-wound Skin Appearance) No Abnormality -Temperature (Sheyla-wound Skin No Abnormality Appearance) (Pt Warm) -Tenderness on Palpation (Sheyla-wound No Skin Appearance) -Ulcer Cleansing Not Cleansed -Foul Odor after Cleansing No [Edema Assessment] -Right Calf (cm) 44.2 -Right Ankle (cm) 25.5 -Left Calf (cm) 45 -Left Ankle (cm) 25.1 WC - Nurse 2 - General Ulcer CM Notes Start: 09/17/17 08:50 Freq: Status: Active Protocol: Activity Type Activity Date Activity User E-Sign Co-Sign Detail Recorded Client Recorded Date Recorded By Document 09/24/17 08:24 JS [id number] 09/24/17 08:27 JS 09/24/17 08:24 Wound Center Nurse 2 [Procedure/Treatment] #1 LLE Cluster -Time 08:26 -Correct Patient Yes -Correct Side, Site, Position Yes -Correct Procedure Yes -Procedure Performed No -Wound/Ulcer Outcome Not Healed -Ulcer Cleansing Not Cleansed -Foul Odor after Cleansing No -Bioengineered Tissue No [See Physician Procedure note for Specifics] Pain Scale: 0-10 Numeric [Pain] -Is Patient Pain Free? Yes Musculoskeletal: No Muscle Wasting Neurological: Cranial nerves II-XII grossly intact, Neuro grossly intact Psych/Mental Status: Normal Affect, Appropriate, Alert and oriented to time, place, person, mood and affect Debridement Note Post-Debridement Measurements/Treatment WC - Nurse 2 - General Ulcer CM Notes Start: 09/17/17 08:50 Freq: Status: Active Protocol: Activity Type Activity Date Activity User E-Sign Co-Sign Detail Recorded Client Recorded Date Recorded By Document 09/17/17 09:59 [id number] 09/17/17 10:12 JS Document 09/24/17 08:24 [id number] 09/24/17 08:27 JS 09/17/17 09/24/17 09:59 08:24 Wound Center Nurse 2 #1 LLE Cluster -Time 09:59 08:26 -Correct Patient Yes Yes -Correct Side, Site, Position Yes Yes -Correct Procedure Yes Yes -Procedure Performed No -Wound/Ulcer Outcome Not Healed Not Healed -Ulcer Cleansing Rinsed/ Not Cleansed Irrigated with Saline -Foul Odor after Cleansing No No -Bioengineered Tissue No No -Bleeding Controlled with NA -Treatment Response Procedure Tolerated Well Pain Scale: 0-10 Numeric Is Patient Pain Free? Yes Yes No debridement was completed today Assessment/Plan Active Problems (Last Updated 07/03/17 @ 09:57 by Ladi Huizar) Chronic venous insufficiency (Chronic) Varicose veins with inflammation (Chronic) Pain in both lower legs (Chronic) Leg swelling (Chronic) Assessment: This is a 67-year-old female with bilateral lower extremity swelling , edema, veins with inflammation, and chronic venous insufficiency. Other medical problems are listed above. The patient has undergone a venous duplex examination within the last week, revealing incompetence of the right great saphenous vein, the right small saphenous vein, the left great saphenous vein, and the left accessory saphenous vein. A noninvasive lower extremity arterial study reveals no evidence of significant arterial occlusive disease. As a result of compression wraps implemented to both lower extremities, an Unna boot in the left lower extremity, and other conservative measures which have included leg elevation, avoidance of idle standing and sitting, active lifestyle , and efforts at weight loss, there has been significant improvement. The patient's venous disease appears to cause itching, and reactive scratching on the part of the patient has, in the past, contributed to the development of excoriations and ulcerations. The use of compression wraps, remaining in place daily, appears to thwart her impulse to scratch. Additionally, the patient relates restlessness in her lower extremities, which may well be related to her chronic venous disease. Plan: We are to continue conservative treatment measures relative to the patient 's lower extremity venous disease. These measures have been discussed with the patient thoroughly. She is to avoid idle standing and sitting. She is to remain active. Weight loss has been recommended, and the patient has lost 10 pounds in recent weeks. The patient is to elevate her lower extremities as much as possible, and to continue sleeping in a recumbent position at night. We are to continue the use of compression to the lower extremities. In the right lower extremity, we are to use a 3M 2 layer compression wrap. A multilayer Unna boot will be used in the left lower extremity. Patient will return twice weekly for change of her wraps. Return in 1 week for reevaluation. Influenza vaccine was not administered today. The patient is not a smoker. She weighs 235 pounds. She stands 5 feet 4 inches tall. BMI is 40.3. This places her in a class III category, and weight loss has been recommended. She has been advised to collaborate with her primary care physician in terms of weight loss options.
[2017-09-27 12:36] VITALS: BP 166/71; PULSE 81; RESP 16; TEMP 36.2; BMI 88.9
[2017-10-01 08:16] VITALS: BP 83/53; PULSE 66; RESP 18; TEMP 35.8; BMI 88.9
--- NOTE | 2017-10-01 08:51 | PCM.WC.HP ---
(1) Chronic venous insufficiency Status: Chronic Current Visit: Yes Code(s): I87.2 - Venous insufficiency (chronic) (peripheral) (2) Varicose veins with inflammation Status: Chronic Current Visit: Yes Code(s): I83.10 - Varicose veins of unspecified lower extremity with inflammation (3) Pain in both lower legs Status: Chronic Current Visit: Yes Code(s): M79.661 - Pain in right lower leg; M79.662 - Pain in left lower leg (4) Leg swelling Status: Chronic Current Visit: Yes Code(s): M79.89 - Other specified soft tissue disorders (5) MVP (mitral valve prolapse) Status: Chronic Current Visit: No Code(s): I34.1 - Nonrheumatic mitral (valve) prolapse (6) Hyperlipidemia Status: Chronic Current Visit: No Code(s): E78.5 - Hyperlipidemia, unspecified (7) Arthritis Status: Chronic Current Visit: No Code(s): M19.90 - Unspecified osteoarthritis, unspecified site (8) Obesity Status: Chronic Current Visit: No Code(s): E66.9 - Obesity, unspecified (9) History of skin cancer Status: Chronic Current Visit: No Code(s): Z85.828 - Personal history of other malignant neoplasm of skin (10) Lichen planus Status: Acute Current Visit: Yes Code(s): L43.9 - Lichen planus, unspecified History of Present Illness Date of Service: 10/01/17 Chief Complaint: Venous insufficiency, varicose veins with inflammation, leg pain, leg swelling History of Wound: This is a 67-year-old female with a long-standing history of chronic venous insufficiency, varicose veins with inflammation, leg pain, and leg swelling in her lower extremities. Her symptoms have been present for over 3 years. She describes pain and discomfort in her lower extremities, associated with swelling. Her symptoms are more severe in the left lower extremity. The patient sleeps on a flat mattress at night. She wears knee-high graduated compression stockings of 15-20 mmHg compression daily. 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 She denies a history of thrombophlebitis. She has undergone no prior vein procedures in the past. She initially presented with superficial ulcerations on the left calf, which were suspected to be a manifestation of her chronic venous disease. As result of initial management, which have included compression wraps, and the use of an Unna boot in the left lower extremity, there has been mild improvement. Past Medical History Past Medical History: Chronic Problems (Last Updated 07/03/17 @ 09:57 by Ladi Huizar) Chronic venous insufficiency (Chronic) Varicose veins with inflammation (Chronic) Pain in both lower legs (Chronic) Leg swelling (Chronic) MVP (mitral valve prolapse) (Chronic) Hyperlipidemia (Chronic) Arthritis (Chronic) Obesity (Chronic) History of skin cancer (Chronic) Surgical History: - - The patient has undergone open reduction and internal fixation of a right ankle fracture approximately 10 years ago. She is a Ab0 Allergies/Adverse Reactions: Allergies hydrocodone Adverse Reaction (Verified 07/03/17 09:58) Other Home Medications: Ambulatory Orders Medication Instructions Recorded Ascorbic Acid/Ascorbate Sodium 500 mg PO 09/17/17 [Vit C-Palma Hips 500 mg Chew Tb] Horse [place] Seed [Horse 300 mg PO 09/17/17 [place]] - Family History Maternal Family History: Family History (Last Updated 07/03/17 @ 09:57 by Ladi Huizar) Mother Diabetes Heart disease Asthma - - The patient's father at the age of 72 with a history of heart disease and diabetes mellitus. Patient's mother is living, age 90, with a history of mitral valve prolapse and hyperlipidemia. Lives: Alone Smoking Status: Never smoker Tobacco Use: Non-smoker Alcohol: Occasional Drugs: None Review of Systems Constitutional: Denies: Chills, Fever, Weight Change Eyes: Denies: Pain, Vision Change HEENT: Denies: Difficulty Hearing, Difficulty Swallowing, Sinus Congestion Cardiovascular: Denies: Chest Pain, Palpitations Respiratory: Denies: Cough, Shortness of Breath Gastrointestinal: Denies: Diarrhea, Nausea, Vomiting Genitourinary: Denies: Dysuria, Hematuria Endocrine: Denies: Heat/ Cold Intolerance, Polydipsia, Polyuria Hematologic/ Lymphatic: Denies: Easy Bruising, Easy Bleeding - Physical Exam Vital Signs Temp Pulse Resp BP 96.5 F L 66 18 83/53 L 10/01/17 08:16 10/01/17 08:16 10/01/17 08:16 10/01/17 08:16 General: Alert, Oriented x3, Cooperative, No apparent distress, Well developed, Well nourished HEENT: Atraumatic, PERRLA, EOMI, Normocephalic Oral: Moist Mucosa Neck: No JVD Lungs: Normal air movement Abdomen: Non-Distended Extremities: No clubbing, No cyanosis, No edema, No Calf Tenderness, - - There is no significant swelling or edema in the lower extremities. There are patches of erythematous dermatitic changes on the right lateral calf and on the left lateral calf and ankle. Circumference measurements are documented elsewhere. The dimensions of the erythematous patches are also documented elsewhere. Wound Measurements and Assessment WC - Nurse 1 - General Ulcer Measurement Start: 09/17/17 08:50 Freq: Status: Active Protocol: Activity Type Activity Date Activity User E-Sign Co-Sign Detail Recorded Client Recorded Date Recorded By Document 10/01/17 08:16 TM [id number] 10/01/17 08:23 TM 10/01/17 08:16 Wound Center Nurse 1 [Ulcer Assessment] #1 LLE Cluster -Combined with other wound No -Current Size (cm) - Length 27.0 -Current Size (cm) - Width 12.0 -Current Size (cm) - Depth 0.1 -Total Square Cm 324.00 -Photo Taken No -Epithelialization Small 1-33% -Tunneling No -Undermining/Tunneling No -Circular Undermining No -Classification - Thickness Full Thickness without Exposed Support Structure -Exudate Amt Small (1-33%) -Exudate Type Serosanguineous -Wound Margin Distinct, Outline Attached -Granulation Amt Large (67-100%) -Granulation Quality Red -Slough/Fibrin Yes -Necrosis Amt Small (1-33%) -Necrotic Tissue Type Adherent Slough -Structure Exposed Fascia Fat Layer Exposed -Texture (Sheyla-wound Skin Appearance) Friable Localized Edema Scarring -Moisture (Sheyla-wound Skin Appearance No Abnormality ) -Color (Sheyla-wound Skin Appearance) Erythema Hemosiderin Staining -Temperature (Sheyla-wound Skin No Abnormality Appearance) (Pt Warm) -Tenderness on Palpation (Sheyla-wound No Skin Appearance) -Ulcer Cleansing Rinsed/ Irrigated with Saline -Foul Odor after Cleansing No [Edema Assessment] -Lower Limb Edema Present Yes -Right Calf (cm) 44.5 -Right Ankle (cm) 26.0 -Left Calf (cm) 44.5 -Left Ankle (cm) 26.0 - Nurse 2 - General Ulcer CM Notes Start: 09/17/17 08:50 Freq: Status: Active Protocol: Activity Type Activity Date Activity User E-Sign Co-Sign Detail Recorded Client Recorded Date Recorded By Document 10/01/17 08:40 [id number] 10/01/17 08:41 10/01/17 08:40 Wound Center Nurse 2 [Procedure/Treatment] #1 LLE Cluster -Time 08:40 -Correct Patient Yes -Correct Side, Site, Position Yes -Correct Procedure Yes -Procedure Performed No -Wound/Ulcer Outcome Not Healed -Ulcer Cleansing Not Cleansed -Foul Odor after Cleansing No -Bioengineered Tissue No -Bleeding Controlled with NA [See Physician Procedure note for Specifics] Pain Scale: 0-10 Numeric [Pain] -Is Patient Pain Free? Yes Musculoskeletal: No Muscle Wasting Neurological: Cranial nerves II-XII grossly intact, Neuro grossly intact Psych/Mental Status: Normal Affect, Appropriate, Alert and oriented to time, place, person, mood and affect Debridement Note Post-Debridement Measurements/Treatment - Nurse 2 - General Ulcer CM Notes Start: 09/17/17 08:50 Freq: Status: Active Protocol: Activity Type Activity Date Activity User E-Sign Co-Sign Detail Recorded Client Recorded Date Recorded By Document 09/17/17 09:59 [id number] 09/17/17 10:12 JS Document 09/24/17 08:24 [id number] 09/24/17 08:27 JS Document 10/01/17 08:40 [id number] 10/01/17 08:41 09/17/17 09/24/17 10/01/17 09:59 08:24 08:40 Wound Center Nurse 2 #1 LLE Cluster -Time 09:59 08:26 08:40 -Correct Patient Yes Yes Yes -Correct Side, Site, Position Yes Yes Yes -Correct Procedure Yes Yes Yes -Procedure Performed No No -Wound/Ulcer Outcome Not Healed Not Healed Not Healed -Ulcer Cleansing Rinsed/ Not Cleansed Not Cleansed Irrigated with Saline -Foul Odor after Cleansing No No No -Bioengineered Tissue No No No -Bleeding Controlled with NA NA -Treatment Response Procedure Tolerated Well Pain Scale: 0-10 Numeric Is Patient Pain Free? Yes Yes Yes No debridement was completed today Assessment/Plan Active Problems (Last Updated 07/03/17 @ 09:57 by Ladi Huizar) Chronic venous insufficiency (Chronic) Varicose veins with inflammation (Chronic) Pain in both lower legs (Chronic) Leg swelling (Chronic) Lichen planus (Acute) Assessment: This is a 67-year-old female with bilateral lower extremity swelling, edema, veins with inflammation, and chronic venous insufficiency. Other medical problems are listed above. The patient has undergone a venous duplex examination within the last week, revealing incompetence of the right great saphenous vein, the right small saphenous vein, the left great saphenous vein, and the left accessory saphenous vein. A noninvasive lower extremity arterial study reveals no evidence of significant arterial occlusive disease. As a result of compression wraps implemented to both lower extremities, an Unna boot in the left lower extremity, and other conservative measures which have included leg elevation, avoidance of idle standing and sitting, active lifestyle, and efforts at weight loss, there has been significant improvement. The patient's venous disease appears to cause itching, and reactive scratching on the part of the patient has, in the past, contributed to the development of excoriations and ulcerations. The use of compression wraps, remaining in place daily, appears to thwart her impulse to scratch. Additionally, the patient relates restlessness in her lower extremities, which may well be related to her chronic venous disease. The patient relates that she has had similar skin changes in her lower extremities in the past, for which she was treated by Dr. Yamileth Storey, cement railroad car loader. A biopsy of the skin lesions by Dr. Storey several years ago suggested the presence of lichen planus. In fact, in addition to the patient's chronic venous disease, the skin changes in the lower extremities may be due to lichen planus. We plan to refer the patient back to Dr. Storey for her recommendations. Plan: We are to continue conservative treatment measures relative to the patient's lower extremity venous disease. These measures have been discussed with the patient thoroughly. She is to avoid idle standing and sitting. She is to remain active. Weight loss has been recommended, and the patient has lost 10 pounds in recent weeks. The patient is to elevate her lower extremities as much as possible, and to continue sleeping in a recumbent position at night. We are to continue the use of compression to the lower extremities. We are to use Unna boots bilaterally, changed twice weekly. We intend to arrange consultation with Dr. Storey, cement railroad car loader, for assessment relative to the patient's suspected dermatological abnormality in the lower extremities, likely lichen planus. If a topical remedy is recommended, we will then transition to the use of graduated compression stockings in the lower extremities, of 20-30 mmHg compression. The patient will return in 1 week for reevaluation. Influenza vaccine was not administered today. The patient is not a smoker. She weighs 235 pounds. She stands 5 feet 4 inches tall. BMI is 40.3. This places her in a class III category, and weight loss has been recommended. She has been advised to collaborate with her primary care physician in terms of weight loss options.
--- NOTE | 2017-10-01 09:00 | HP.PCM_ITS ---
(1) Chronic venous insufficiency Status: Chronic Current Visit: Yes Code(s): I87.2 - Venous insufficiency ( chronic) (peripheral) (2) Varicose veins with inflammation Status: Chronic Current Visit: Yes Code(s): I83.10 - Varicose veins of unspecified lower extremity with inflammation (3) Pain in both lower legs Status: Chronic Current Visit: Yes Code(s): M79.661 - Pain in right lower leg; M79.662 - Pain in left lower leg (4) Leg swelling Status: Chronic Current Visit: Yes Code(s): M79.89 - Other specified soft tissue disorders (5) MVP (mitral valve prolapse) Status: Chronic Current Visit: No Code(s): I34.1 - Nonrheumatic mitral ( valve) prolapse (6) Hyperlipidemia Status: Chronic Current Visit: No Code(s): E78.5 - Hyperlipidemia, unspecified (7) Arthritis Status: Chronic Current Visit: No Code(s): M19.90 - Unspecified osteoarthritis, unspecified site (8) Obesity Status: Chronic Current Visit: No Code(s): E66.9 - Obesity, unspecified (9) History of skin cancer Status: Chronic Current Visit: No Code(s): Z85.828 - Personal history of other malignant neoplasm of skin (10) Lichen planus Status: Acute Current Visit: Yes Code(s): L43.9 - Lichen planus, unspecified History of Present Illness Date of Service: 10/01/17 Chief Complaint: Venous insufficiency, varicose veins with inflammation, leg pain, leg swelling History of Wound: This is a 67-year-old female with a long-standing history of chronic venous insufficiency, varicose veins with inflammation, leg pain, and leg swelling in her lower extremities. Her symptoms have been present for over 3 years. She describes pain and discomfort in her lower extremities, associated with swelling. Her symptoms are more severe in the left lower extremity. The patient sleeps on a flat mattress at night. She wears knee- high graduated compression stockings of 15-20 mmHg compression daily. 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 She denies a history of thrombophlebitis. She has undergone no prior vein procedures in the past. She initially presented with superficial ulcerations on the left calf, which were suspected to be a manifestation of her chronic venous disease. As result of initial management, which have included compression wraps, and the use of an Unna boot in the left lower extremity, there has been mild improvement. Past Medical History Past Medical History: Chronic Problems (Last Updated 07/03/17 @ 09:57 by Ladi Huizar) Chronic venous insufficiency (Chronic) Varicose veins with inflammation (Chronic) Pain in both lower legs (Chronic) Leg swelling (Chronic) MVP (mitral valve prolapse) (Chronic) Hyperlipidemia (Chronic) Arthritis (Chronic) Obesity (Chronic) History of skin cancer (Chronic) Surgical History: - - The patient has undergone open reduction and internal fixation of a right ankle fracture approximately 10 years ago. She is a Ab0 Allergies/Adverse Reactions: Allergies hydrocodone Adverse Reaction (Verified 07/03/17 09:58) Other Home Medications: Ambulatory Orders Medication Instructions Recorded Ascorbic Acid/Ascorbate Sodium 500 mg PO 09/17/17 [Vit C-Palma Hips 500 mg Chew Tb] Horse [place] Seed [Horse 300 mg PO 09/17/17 [place]] - Family History Maternal Family History: Family History (Last Updated 07/03/17 @ 09:57 by Ladi Huizar) Mother Diabetes Heart disease Asthma - - The patient's father at the age of 72 with a history of heart disease and diabetes mellitus. Patient's mother is living, age 90, with a history of mitral valve prolapse and hyperlipidemia. Lives: Alone Smoking Status: Never smoker Tobacco Use: Non-smoker Alcohol: Occasional Drugs: None Review of Systems Constitutional: Denies: Chills, Fever, Weight Change Eyes: Denies: Pain, Vision Change HEENT: Denies: Difficulty Hearing, Difficulty Swallowing, Sinus Congestion Cardiovascular: Denies: Chest Pain, Palpitations Respiratory: Denies: Cough, Shortness of Breath Gastrointestinal: Denies: Diarrhea, Nausea, Vomiting Genitourinary: Denies: Dysuria, Hematuria Endocrine: Denies: Heat/ Cold Intolerance, Polydipsia, Polyuria Hematologic/ Lymphatic: Denies: Easy Bruising, Easy Bleeding - Physical Exam Vital Signs Temp Pulse Resp BP 96.5 F L 66 18 83/53 L 10/01/17 08:16 10/01/17 08:16 10/01/17 08:16 10/01/17 08:16 General: Alert, Oriented x3, Cooperative, No apparent distress, Well developed, Well nourished HEENT: Atraumatic, PERRLA, EOMI, Normocephalic Oral: Moist Mucosa Neck: No JVD Lungs: Normal air movement Abdomen: Non-Distended Extremities: No clubbing, No cyanosis, No edema, No Calf Tenderness, - - There is no significant swelling or edema in the lower extremities. There are patches of erythematous dermatitic changes on the right lateral calf and on the left lateral calf and ankle. Circumference measurements are documented elsewhere. The dimensions of the erythematous patches are also documented elsewhere. Wound Measurements and Assessment WC - Nurse 1 - General Ulcer Measurement Start: 09/17/17 08:50 Freq: Status: Active Protocol: Activity Type Activity Date Activity User E-Sign Co-Sign Detail Recorded Client Recorded Date Recorded By Document 10/01/17 08:16 TM [id number] 10/01/17 08:23 TM 10/01/17 08:16 Wound Center Nurse 1 [Ulcer Assessment] #1 LLE Cluster -Combined with other wound No -Current Size (cm) - Length 27.0 -Current Size (cm) - Width 12.0 -Current Size (cm) - Depth 0.1 -Total Square Cm 324.00 -Photo Taken No -Epithelialization Small 1-33% -Tunneling No -Undermining/Tunneling No -Circular Undermining No -Classification - Thickness Full Thickness without Exposed Support Structure -Exudate Amt Small (1-33%) -Exudate Type Serosanguineous -Wound Margin Distinct, Outline Attached -Granulation Amt Large (67-100%) -Granulation Quality Red -Slough/Fibrin Yes -Necrosis Amt Small (1-33%) -Necrotic Tissue Type Adherent Slough -Structure Exposed Fascia Fat Layer Exposed -Texture (Sheyla-wound Skin Appearance) Friable Localized Edema Scarring -Moisture (Sheyla-wound Skin Appearance No Abnormality ) -Color (Sheyla-wound Skin Appearance) Erythema Hemosiderin Staining -Temperature (Sheyla-wound Skin No Abnormality Appearance) (Pt Warm) -Tenderness on Palpation (Sheyla-wound No Skin Appearance) -Ulcer Cleansing Rinsed/ Irrigated with Saline -Foul Odor after Cleansing No [Edema Assessment] -Lower Limb Edema Present Yes -Right Calf (cm) 44.5 -Right Ankle (cm) 26.0 -Left Calf (cm) 44.5 -Left Ankle (cm) 26.0 - Nurse 2 - General Ulcer CM Notes Start: 09/17/17 08:50 Freq: Status: Active Protocol: Activity Type Activity Date Activity User E-Sign Co-Sign Detail Recorded Client Recorded Date Recorded By Document 10/01/17 08:40 [id number] 10/01/17 08:41 10/01/17 08:40 Wound Center Nurse 2 [Procedure/Treatment] #1 LLE Cluster -Time 08:40 -Correct Patient Yes -Correct Side, Site, Position Yes -Correct Procedure Yes -Procedure Performed No -Wound/Ulcer Outcome Not Healed -Ulcer Cleansing Not Cleansed -Foul Odor after Cleansing No -Bioengineered Tissue No -Bleeding Controlled with NA [See Physician Procedure note for Specifics] Pain Scale: 0-10 Numeric [Pain] -Is Patient Pain Free? Yes Musculoskeletal: No Muscle Wasting Neurological: Cranial nerves II-XII grossly intact, Neuro grossly intact Psych/Mental Status: Normal Affect, Appropriate, Alert and oriented to time, place, person, mood and affect Debridement Note Post-Debridement Measurements/Treatment - Nurse 2 - General Ulcer CM Notes Start: 09/17/17 08:50 Freq: Status: Active Protocol: Activity Type Activity Date Activity User E-Sign Co-Sign Detail Recorded Client Recorded Date Recorded By Document 09/17/17 09:59 [id number] 09/17/17 10:12 JS Document 09/24/17 08:24 [id number] 09/24/17 08:27 JS Document 10/01/17 08:40 [id number] 10/01/17 08:41 09/17/17 09/24/17 10/01/17 09:59 08:24 08:40 Wound Center Nurse 2 #1 LLE Cluster -Time 09:59 08:26 08:40 -Correct Patient Yes Yes Yes -Correct Side, Site, Position Yes Yes Yes -Correct Procedure Yes Yes Yes -Procedure Performed No No -Wound/Ulcer Outcome Not Healed Not Healed Not Healed -Ulcer Cleansing Rinsed/ Not Cleansed Not Cleansed Irrigated with Saline -Foul Odor after Cleansing No No No -Bioengineered Tissue No No No -Bleeding Controlled with NA NA -Treatment Response Procedure Tolerated Well Pain Scale: 0-10 Numeric Is Patient Pain Free? Yes Yes Yes No debridement was completed today Assessment/Plan Active Problems (Last Updated 07/03/17 @ 09:57 by Ladi Huizar) Chronic venous insufficiency (Chronic) Varicose veins with inflammation (Chronic) Pain in both lower legs (Chronic) Leg swelling (Chronic) Lichen planus (Acute) Assessment: This is a 67-year-old female with bilateral lower extremity swelling , edema, veins with inflammation, and chronic venous insufficiency. Other medical problems are listed above. The patient has undergone a venous duplex examination within the last week, revealing incompetence of the right great saphenous vein, the right small saphenous vein, the left great saphenous vein, and the left accessory saphenous vein. A noninvasive lower extremity arterial study reveals no evidence of significant arterial occlusive disease. As a result of compression wraps implemented to both lower extremities, an Unna boot in the left lower extremity, and other conservative measures which have included leg elevation, avoidance of idle standing and sitting, active lifestyle , and efforts at weight loss, there has been significant improvement. The patient's venous disease appears to cause itching, and reactive scratching on the part of the patient has, in the past, contributed to the development of excoriations and ulcerations. The use of compression wraps, remaining in place daily, appears to thwart her impulse to scratch. Additionally, the patient relates restlessness in her lower extremities, which may well be related to her chronic venous disease. The patient relates that she has had similar skin changes in her lower extremities in the past, for which she was treated by Dr. Yamileth Storey, vacuum tester cans. A biopsy of the skin lesions by Dr. Storey several years ago suggested the presence of lichen planus. In fact, in addition to the patient's chronic venous disease, the skin changes in the lower extremities may be due to lichen planus. We plan to refer the patient back to Dr. Storey for her recommendations. Plan: We are to continue conservative treatment measures relative to the patient 's lower extremity venous disease. These measures have been discussed with the patient thoroughly. She is to avoid idle standing and sitting. She is to remain active. Weight loss has been recommended, and the patient has lost 10 pounds in recent weeks. The patient is to elevate her lower extremities as much as possible, and to continue sleeping in a recumbent position at night. We are to continue the use of compression to the lower extremities. We are to use Unna boots bilaterally, changed twice weekly. We intend to arrange consultation with Dr. Storey, vacuum tester cans, for assessment relative to the patient's suspected dermatological abnormality in the lower extremities, likely lichen planus. If a topical remedy is recommended, we will then transition to the use of graduated compression stockings in the lower extremities, of 20-30 mmHg compression. The patient will return in 1 week for reevaluation. Influenza vaccine was not administered today. The patient is not a smoker. She weighs 235 pounds. She stands 5 feet 4 inches tall. BMI is 40.3. This places her in a class III category, and weight loss has been recommended. She has been advised to collaborate with her primary care physician in terms of weight loss options.
[2017-10-04 13:32] VITALS: BP 164/73; PULSE 81; RESP 16; TEMP 36.3; BMI 88.9
[2017-10-08 11:01] VITALS: BP 191/88; PULSE 65; RESP 18; TEMP 35.4; BMI 88.9
--- NOTE | 2017-10-08 11:27 | PCM.WC.HP ---
(1) Chronic venous insufficiency Status: Chronic Current Visit: Yes Code(s): I87.2 - Venous insufficiency (chronic) (peripheral) (2) Varicose veins with inflammation Status: Chronic Current Visit: Yes Code(s): I83.10 - Varicose veins of unspecified lower extremity with inflammation (3) Pain in both lower legs Status: Chronic Current Visit: Yes Code(s): M79.661 - Pain in right lower leg; M79.662 - Pain in left lower leg (4) Leg swelling Status: Chronic Current Visit: Yes Code(s): M79.89 - Other specified soft tissue disorders (5) MVP (mitral valve prolapse) Status: Chronic Current Visit: No Code(s): I34.1 - Nonrheumatic mitral (valve) prolapse (6) Hyperlipidemia Status: Chronic Current Visit: No Code(s): E78.5 - Hyperlipidemia, unspecified (7) Arthritis Status: Chronic Current Visit: No Code(s): M19.90 - Unspecified osteoarthritis, unspecified site (8) Obesity Status: Chronic Current Visit: No Code(s): E66.9 - Obesity, unspecified (9) History of skin cancer Status: Chronic Current Visit: No Code(s): Z85.828 - Personal history of other malignant neoplasm of skin (10) Lichen planus Status: Acute Current Visit: Yes Code(s): L43.9 - Lichen planus, unspecified History of Present Illness Date of Service: 10/08/17 Chief Complaint: Venous insufficiency, varicose veins with inflammation, leg pain, leg swelling History of Wound: This is a 67-year-old female with a long-standing history of chronic venous insufficiency, varicose veins with inflammation, leg pain, and leg swelling in her lower extremities. Her symptoms have been present for over 3 years. She describes pain and discomfort in her lower extremities, associated with swelling. Her symptoms are more severe in the left lower extremity. The patient sleeps on a flat mattress at night. She wears knee-high graduated compression stockings of 15-20 mmHg compression daily. 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 She denies a history of thrombophlebitis. She has undergone no prior vein procedures in the past. She initially presented with superficial ulcerations on the left calf, which were suspected to be a manifestation of her chronic venous disease. As result of initial management, which have included compression wraps, and the use of an Unna boot in the left lower extremity, there has been mild improvement. The patient was seen and evaluated by Dr. Yamileth Storey this morning. Dr. Sotrey is a jewelry dipper. Dr. Storey has conveyed to the patient that she is confident that the patient's skin changes are due to lichen planus. Dr. Storey has prescribed a treatment protocol. This involves applying Ultravate/Vaseline mixture to the left lower leg and right ankle twice daily, and wrapping with plastic. Dr. Storey has indicated that continuance of graduated compression stockings is acceptable. Past Medical History Past Medical History: Chronic Problems (Last Updated 07/03/17 @ 09:57 by Ladi Huizar) Chronic venous insufficiency (Chronic) Varicose veins with inflammation (Chronic) Pain in both lower legs (Chronic) Leg swelling (Chronic) MVP (mitral valve prolapse) (Chronic) Hyperlipidemia (Chronic) Arthritis (Chronic) Obesity (Chronic) History of skin cancer (Chronic) Surgical History: - - The patient has undergone open reduction and internal fixation of a right ankle fracture approximately 10 years ago. She is a Ab0 Allergies/Adverse Reactions: Allergies hydrocodone Adverse Reaction (Verified 07/03/17 09:58) Other Home Medications: Ambulatory Orders Medication Instructions Recorded Ascorbic Acid/Ascorbate Sodium 500 mg PO 09/17/17 [Vit C-Palma Hips 500 mg Chew Tb] Horse [place] Seed [Horse 300 mg PO 09/17/17 [place]] - Family History Maternal Family History: Family History (Last Updated 07/03/17 @ 09:57 by Ladi Huizar) Mother Diabetes Heart disease Asthma - - The patient's father at the age of 72 with a history of heart disease and diabetes mellitus. Patient's mother is living, age 90, with a history of mitral valve prolapse and hyperlipidemia. Lives: Alone Smoking Status: Never smoker Tobacco Use: Non-smoker Alcohol: Occasional Drugs: None Review of Systems Constitutional: Denies: Chills, Fever, Weight Change Eyes: Denies: Pain, Vision Change HEENT: Denies: Difficulty Hearing, Difficulty Swallowing, Sinus Congestion Cardiovascular: Denies: Chest Pain, Palpitations Respiratory: Denies: Cough, Shortness of Breath Gastrointestinal: Denies: Diarrhea, Nausea, Vomiting Genitourinary: Denies: Dysuria, Hematuria Endocrine: Denies: Heat/ Cold Intolerance, Polydipsia, Polyuria Hematologic/ Lymphatic: Denies: Easy Bruising, Easy Bleeding - Physical Exam Vital Signs Temp Pulse Resp BP 95.7 F L 65 18 191/88 H 10/08/17 11:01 10/08/17 11:01 10/08/17 11:01 10/08/17 11:01 General: Alert, Oriented x3, Cooperative, No apparent distress, Well developed, Well nourished HEENT: Atraumatic, PERRLA, EOMI, Normocephalic Oral: Moist Mucosa Neck: No JVD Lungs: Normal air movement Abdomen: Non-Distended Extremities: No clubbing, No cyanosis, No Calf Tenderness, - - Slight swelling and edema persists in the lower extremities. The patient has just returned from an appointment with Dr. Storey, and both distal lower extremities are wrapped with plastic, a part of treatment as prescribed by Dr. Storey. Skin: No breakdown Wound Measurements and Assessment - Nurse 1 - General Ulcer Measurement Start: 09/17/17 08:50 Freq: Status: Active Protocol: Activity Type Activity Date Activity User E-Sign Co-Sign Detail Recorded Client Recorded Date Recorded By Document 10/08/17 11:01 [id number] 10/08/17 11:05 10/08/17 11:01 Wound Center Nurse 1 [Edema Assessment] -Lower Limb Edema Present Yes -Right Calf (cm) 45.0 -Right Ankle (cm) 26.4 -Left Calf (cm) 47.4 -Left Ankle (cm) 25.8 - Nurse 2 - General Ulcer CM Notes Start: 09/17/17 08:50 Freq: Status: Active Protocol: Activity Type Activity Date Activity User E-Sign Co-Sign Detail Recorded Client Recorded Date Recorded By Document 10/08/17 11:20 [id number] 10/08/17 11:23 10/08/17 11:20 Pain Scale: 0-10 Numeric [Pain] -Is Patient Pain Free? Yes Musculoskeletal: No Muscle Wasting Neurological: Cranial nerves II-XII grossly intact, Neuro grossly intact Psych/Mental Status: Normal Affect, Appropriate, Alert and oriented to time, place, person, mood and affect Debridement Note Post-Debridement Measurements/Treatment WC - Nurse 2 - General Ulcer CM Notes Start: 09/17/17 08:50 Freq: Status: Active Protocol: Activity Type Activity Date Activity User E-Sign Co-Sign Detail Recorded Client Recorded Date Recorded By Document 09/17/17 09:59 [id number] 09/17/17 10:12 JS Document 09/24/17 08:24 JS [id number] 09/24/17 08:27 JS Document 10/01/17 08:40 JS [id number] 10/01/17 08:41 JS Document 10/08/17 11:20 JS [id number] 10/08/17 11:23 JS 09/17/17 09/24/17 10/01/17 09:59 08:24 08:40 Wound Center Nurse 2 #1 LLE Cluster -Time 09:59 08:26 08:40 -Correct Patient Yes Yes Yes -Correct Side, Site, Position Yes Yes Yes -Correct Procedure Yes Yes Yes -Procedure Performed No No -Wound/Ulcer Outcome Not Healed Not Healed Not Healed -Ulcer Cleansing Rinsed/ Not Cleansed Not Cleansed Irrigated with Saline -Foul Odor after Cleansing No No No -Bioengineered Tissue No No No -Bleeding Controlled with NA NA -Treatment Response Procedure Tolerated Well Pain Scale: 0-10 Numeric Is Patient Pain Free? Yes Yes Yes 10/08/17 11:20 Wound Center Nurse 2 #1 LLE Cluster -Time -Correct Patient -Correct Side, Site, Position -Correct Procedure -Procedure Performed -Wound/Ulcer Outcome -Ulcer Cleansing -Foul Odor after Cleansing -Bioengineered Tissue -Bleeding Controlled with -Treatment Response Pain Scale: 0-10 Numeric Is Patient Pain Free? Yes No debridement was completed today Assessment/Plan Active Problems (Last Updated 07/03/17 @ 09:57 by Ladi Huizar) Chronic venous insufficiency (Chronic) Varicose veins with inflammation (Chronic) Pain in both lower legs (Chronic) Leg swelling (Chronic) Lichen planus (Acute) Assessment: This is a 67-year-old female with bilateral lower extremity swelling, edema, veins with inflammation, and chronic venous insufficiency. Other medical problems are listed above. The patient has undergone a venous duplex examination within the last week, revealing incompetence of the right great saphenous vein, the right small saphenous vein, the left great saphenous vein, and the left accessory saphenous vein. A noninvasive lower extremity arterial study reveals no evidence of significant arterial occlusive disease. As a result of compression wraps implemented to both lower extremities, an Unna boot in the left lower extremity, and other conservative measures which have included leg elevation, avoidance of idle standing and sitting, active lifestyle, and efforts at weight loss, there has been significant improvement. Additionally, the patient relates restlessness in her lower extremities, which may well be related to her chronic venous disease. The patient relates that she has had similar skin changes in her lower extremities in the past, for which she was treated by Dr. Yamileth Storey, jewelry dipper. A biopsy of the skin lesions by Dr. Storey several years ago suggested the presence of lichen planus. In fact, in addition to the patient's chronic venous disease, the skin changes in the lower extremities are suspected to be due to lichen planus. This has now been confirmed by Dr. Storey, who evaluated the patient earlier today. Plan: We are to continue conservative treatment measures relative to the patient's lower extremity venous disease. These measures have been discussed with the patient thoroughly. She is to avoid idle standing and sitting. She is to remain active. Weight loss has been recommended, and the patient has lost 10 pounds in recent weeks. The patient is to elevate her lower extremities as much as possible, and to continue sleeping in a recumbent position at night. We are to continue the use of compression to the lower extremities. The patient has been provided a prescription for knee-high graduated compression stockings of 20-30 mmHg, which are to be worn daily. The patient is to continue based upon the recommendations by Dr. Storey relative to treatment of her lichen planus. The patient will return in 2 weeks for reevaluation. Influenza vaccine was not administered today. The patient is not a smoker. She weighs 235 pounds. She stands 5 feet 4 inches tall. BMI is 40.3. This places her in a class III category, and weight loss has been recommended. She has been advised to collaborate with her primary care physician in terms of weight loss options.
--- NOTE | 2017-10-08 11:32 | HP.PCM_ITS ---
(1) Chronic venous insufficiency Status: Chronic Current Visit: Yes Code(s): I87.2 - Venous insufficiency ( chronic) (peripheral) (2) Varicose veins with inflammation Status: Chronic Current Visit: Yes Code(s): I83.10 - Varicose veins of unspecified lower extremity with inflammation (3) Pain in both lower legs Status: Chronic Current Visit: Yes Code(s): M79.661 - Pain in right lower leg; M79.662 - Pain in left lower leg (4) Leg swelling Status: Chronic Current Visit: Yes Code(s): M79.89 - Other specified soft tissue disorders (5) MVP (mitral valve prolapse) Status: Chronic Current Visit: No Code(s): I34.1 - Nonrheumatic mitral ( valve) prolapse (6) Hyperlipidemia Status: Chronic Current Visit: No Code(s): E78.5 - Hyperlipidemia, unspecified (7) Arthritis Status: Chronic Current Visit: No Code(s): M19.90 - Unspecified osteoarthritis, unspecified site (8) Obesity Status: Chronic Current Visit: No Code(s): E66.9 - Obesity, unspecified (9) History of skin cancer Status: Chronic Current Visit: No Code(s): Z85.828 - Personal history of other malignant neoplasm of skin (10) Lichen planus Status: Acute Current Visit: Yes Code(s): L43.9 - Lichen planus, unspecified History of Present Illness Date of Service: 10/08/17 Chief Complaint: Venous insufficiency, varicose veins with inflammation, leg pain, leg swelling History of Wound: This is a 67-year-old female with a long-standing history of chronic venous insufficiency, varicose veins with inflammation, leg pain, and leg swelling in her lower extremities. Her symptoms have been present for over 3 years. She describes pain and discomfort in her lower extremities, associated with swelling. Her symptoms are more severe in the left lower extremity. The patient sleeps on a flat mattress at night. She wears knee- high graduated compression stockings of 15-20 mmHg compression daily. 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 She denies a history of thrombophlebitis. She has undergone no prior vein procedures in the past. She initially presented with superficial ulcerations on the left calf, which were suspected to be a manifestation of her chronic venous disease. As result of initial management, which have included compression wraps, and the use of an Unna boot in the left lower extremity, there has been mild improvement. The patient was seen and evaluated by Dr. Yamileth Storey this morning. Dr. Storey is a perishable freight inspector. Dr. Stroey has conveyed to the patient that she is confident that the patient's skin changes are due to lichen planus. Dr. Storey has prescribed a treatment protocol. This involves applying Ultravate/Vaseline mixture to the left lower leg and right ankle twice daily, and wrapping with plastic. Dr. Storey has indicated that continuance of graduated compression stockings is acceptable. Past Medical History Past Medical History: Chronic Problems (Last Updated 07/03/17 @ 09:57 by Ladi Huizar) Chronic venous insufficiency (Chronic) Varicose veins with inflammation (Chronic) Pain in both lower legs (Chronic) Leg swelling (Chronic) MVP (mitral valve prolapse) (Chronic) Hyperlipidemia (Chronic) Arthritis (Chronic) Obesity (Chronic) History of skin cancer (Chronic) Surgical History: - - The patient has undergone open reduction and internal fixation of a right ankle fracture approximately 10 years ago. She is a Ab0 Allergies/Adverse Reactions: Allergies hydrocodone Adverse Reaction (Verified 07/03/17 09:58) Other Home Medications: Ambulatory Orders Medication Instructions Recorded Ascorbic Acid/Ascorbate Sodium 500 mg PO 09/17/17 [Vit C-Palma Hips 500 mg Chew Tb] Horse Massena Seed [Horse 300 mg PO 09/17/17 Massena] - Family History Maternal Family History: Family History (Last Updated 07/03/17 @ 09:57 by Ladi Huizar) Mother Diabetes Heart disease Asthma - - The patient's father at the age of 72 with a history of heart disease and diabetes mellitus. Patient's mother is living, age 90, with a history of mitral valve prolapse and hyperlipidemia. Lives: Alone Smoking Status: Never smoker Tobacco Use: Non-smoker Alcohol: Occasional Drugs: None Review of Systems Constitutional: Denies: Chills, Fever, Weight Change Eyes: Denies: Pain, Vision Change HEENT: Denies: Difficulty Hearing, Difficulty Swallowing, Sinus Congestion Cardiovascular: Denies: Chest Pain, Palpitations Respiratory: Denies: Cough, Shortness of Breath Gastrointestinal: Denies: Diarrhea, Nausea, Vomiting Genitourinary: Denies: Dysuria, Hematuria Endocrine: Denies: Heat/ Cold Intolerance, Polydipsia, Polyuria Hematologic/ Lymphatic: Denies: Easy Bruising, Easy Bleeding - Physical Exam Vital Signs Temp Pulse Resp BP 95.7 F L 65 18 191/88 H 10/08/17 11:01 10/08/17 11:01 10/08/17 11:01 10/08/17 11:01 General: Alert, Oriented x3, Cooperative, No apparent distress, Well developed, Well nourished HEENT: Atraumatic, PERRLA, EOMI, Normocephalic Oral: Moist Mucosa Neck: No JVD Lungs: Normal air movement Abdomen: Non-Distended Extremities: No clubbing, No cyanosis, No Calf Tenderness, - - Slight swelling and edema persists in the lower extremities. The patient has just returned from an appointment with Dr. Storey, and both distal lower extremities are wrapped with plastic, a part of treatment as prescribed by Dr. Storey. Skin: No breakdown Wound Measurements and Assessment - Nurse 1 - General Ulcer Measurement Start: 09/17/17 08:50 Freq: Status: Active Protocol: Activity Type Activity Date Activity User E-Sign Co-Sign Detail Recorded Client Recorded Date Recorded By Document 10/08/17 11:01 [id number] 10/08/17 11:05 10/08/17 11:01 Wound Center Nurse 1 [Edema Assessment] -Lower Limb Edema Present Yes -Right Calf (cm) 45.0 -Right Ankle (cm) 26.4 -Left Calf (cm) 47.4 -Left Ankle (cm) 25.8 - Nurse 2 - General Ulcer CM Notes Start: 09/17/17 08:50 Freq: Status: Active Protocol: Activity Type Activity Date Activity User E-Sign Co-Sign Detail Recorded Client Recorded Date Recorded By Document 10/08/17 11:20 [id number] 10/08/17 11:23 10/08/17 11:20 Pain Scale: 0-10 Numeric [Pain] -Is Patient Pain Free? Yes Musculoskeletal: No Muscle Wasting Neurological: Cranial nerves II-XII grossly intact, Neuro grossly intact Psych/Mental Status: Normal Affect, Appropriate, Alert and oriented to time, place, person, mood and affect Debridement Note Post-Debridement Measurements/Treatment WC - Nurse 2 - General Ulcer CM Notes Start: 09/17/17 08:50 Freq: Status: Active Protocol: Activity Type Activity Date Activity User E-Sign Co-Sign Detail Recorded Client Recorded Date Recorded By Document 09/17/17 09:59 [id number] 09/17/17 10:12 JS Document 09/24/17 08:24 JS [id number] 09/24/17 08:27 JS Document 10/01/17 08:40 JS [id number] 10/01/17 08:41 JS Document 10/08/17 11:20 JS [id number] 10/08/17 11:23 JS 09/17/17 09/24/17 10/01/17 09:59 08:24 08:40 Wound Center Nurse 2 #1 LLE Cluster -Time 09:59 08:26 08:40 -Correct Patient Yes Yes Yes -Correct Side, Site, Position Yes Yes Yes -Correct Procedure Yes Yes Yes -Procedure Performed No No -Wound/Ulcer Outcome Not Healed Not Healed Not Healed -Ulcer Cleansing Rinsed/ Not Cleansed Not Cleansed Irrigated with Saline -Foul Odor after Cleansing No No No -Bioengineered Tissue No No No -Bleeding Controlled with NA NA -Treatment Response Procedure Tolerated Well Pain Scale: 0-10 Numeric Is Patient Pain Free? Yes Yes Yes 10/08/17 11:20 Wound Center Nurse 2 #1 LLE Cluster -Time -Correct Patient -Correct Side, Site, Position -Correct Procedure -Procedure Performed -Wound/Ulcer Outcome -Ulcer Cleansing -Foul Odor after Cleansing -Bioengineered Tissue -Bleeding Controlled with -Treatment Response Pain Scale: 0-10 Numeric Is Patient Pain Free? Yes No debridement was completed today Assessment/Plan Active Problems (Last Updated 07/03/17 @ 09:57 by Ladi Huizar) Chronic venous insufficiency (Chronic) Varicose veins with inflammation (Chronic) Pain in both lower legs (Chronic) Leg swelling (Chronic) Lichen planus (Acute) Assessment: This is a 67-year-old female with bilateral lower extremity swelling , edema, veins with inflammation, and chronic venous insufficiency. Other medical problems are listed above. The patient has undergone a venous duplex examination within the last week, revealing incompetence of the right great saphenous vein, the right small saphenous vein, the left great saphenous vein, and the left accessory saphenous vein. A noninvasive lower extremity arterial study reveals no evidence of significant arterial occlusive disease. As a result of compression wraps implemented to both lower extremities, an Unna boot in the left lower extremity, and other conservative measures which have included leg elevation, avoidance of idle standing and sitting, active lifestyle , and efforts at weight loss, there has been significant improvement. Additionally, the patient relates restlessness in her lower extremities, which may well be related to her chronic venous disease. The patient relates that she has had similar skin changes in her lower extremities in the past, for which she was treated by Dr. Yamileth Storey, perishable freight inspector. A biopsy of the skin lesions by Dr. Storey several years ago suggested the presence of lichen planus. In fact, in addition to the patient's chronic venous disease, the skin changes in the lower extremities are suspected to be due to lichen planus. This has now been confirmed by Dr. Storey, who evaluated the patient earlier today. Plan: We are to continue conservative treatment measures relative to the patient 's lower extremity venous disease. These measures have been discussed with the patient thoroughly. She is to avoid idle standing and sitting. She is to remain active. Weight loss has been recommended, and the patient has lost 10 pounds in recent weeks. The patient is to elevate her lower extremities as much as possible, and to continue sleeping in a recumbent position at night. We are to continue the use of compression to the lower extremities. The patient has been provided a prescription for knee-high graduated compression stockings of 20-30 mmHg, which are to be worn daily. The patient is to continue based upon the recommendations by Dr. Storey relative to treatment of her lichen planus. The patient will return in 2 weeks for reevaluation. Influenza vaccine was not administered today. The patient is not a smoker. She weighs 235 pounds. She stands 5 feet 4 inches tall. BMI is 40.3. This places her in a class III category, and weight loss has been recommended. She has been advised to collaborate with her primary care physician in terms of weight loss options.
== END 2017-10-12 23:59 ==
LOC: WC 10:15
PROVIDERS: Visit Provider Surgery
DX: I83.12 Varicose veins of left lower extremity with inflammation (principal); M79.605 Pain in left leg; M79.604 Pain in right leg; E66.9 Obesity, unspecified; Z71.3 Dietary counseling and surveillance; E78.5 Hyperlipidemia, unspecified; M19.90 Unspecified osteoarthritis, unspecified site; Z68.41 Body mass index [BMI] 40.0-44.9, adult; Z85.828 Personal history of other malignant neoplasm of skin; L43.9 Lichen planus, unspecified
CPT/HCPCS: 29580; 29581; 99211; 99212; 99213; G0463

== ENCOUNTER 2017-11-04 10:09 | Outpatient (RCR) | payer MEDICARE, OTHER, SELFPAY ==
[2017-10-13 01:08] VITALS: PULSE 65; RESP 18; TEMP 35.4
[2017-11-04 14:59] VITALS: BP 160/108; PULSE 75; RESP 16; TEMP 35.9
== END 2017-11-11 23:59 ==
LOC: WC 10:09
PROVIDERS: Visit Provider Surgery
DX: Z09 Encounter for follow-up examination after completed treatment for conditions other than malignant neoplasm (principal)
CPT/HCPCS: 99212; G0463

== ENCOUNTER 2020-05-13 20:39 | Emergency (ER) | payer MEDICARE, OTHER, SELFPAY ==
[2020-05-13 20:42] VITALS: BP 186/90; PULSE 132; RESP 18; TEMP 36.8; O2SAT 97; BMI 45.6
--- NOTE | 2020-05-13 21:01 | EKG12_ITS ---
Test Reason : PALPS Blood Pressure : / mmHG Vent. Rate : 151 BPM Atrial Rate : 156 BPM P-R Int : 000 ms QRS Dur : 078 ms QT Int : 284 ms P-R-T Axes : 000 030 113 degrees QTc Int : 450 ms Atrial fibrillation with rapid ventricular response with premature ventricular or aberrantly conducte d complexes Minimal voltage criteria for LVH, may be normal variant Nonspecific ST and T wave abnormality Abnormal ECG Confirmed by CHALO GUZMAN, IVON ([id number]), features editor ALEX COLLIER ([id number]) on 05/17/2020 11:16:40 AM Referred By: TAYLA Confirmed By:IVON ISABEL MD
--- NOTE | 2020-05-13 21:01 | RAD_ITS ---
STUDY: X-RAY CHEST REASON FOR EXAM: Female, 69 years old. Palpitations, A-fib, has bronchitis since 04/09. TECHNIQUE: Single frontal view of the chest. COMPARISON: None. FINDINGS: The lungs are clear and expanded. There is no demonstrated pleural abnormality. Prominent cardiac silhouette. Normal mediastinum and chidi. Normal visualized pulmonary arteries. Normal visualized aortic arch and descending thoracic aorta. Normal visualized thoracic spine. Normal visualized ribs, clavicles, and shoulders. There is no demonstrated abnormality of the visualized soft tissue structures of the upper abdomen. RAD/Chest 1 View (Portable) IMPRESSION: No acute pulmonary findings. Electronically Signed: Devin Mcdonald MD at 22:08 EDT Tel , Service support ,
--- NOTE | 2020-05-13 21:02 | ED.DCSUM_ITS ---
- ER Visit Summary Date of Service: 05/13/20 Chief Complaint: Palpitations History of Present Illness: The patient is a 69 F who presents with palpitations that she noticed today. Patient states she checked her blood pressure and heart rate today and noticed her heart rate was elevated. Patient states she has a history of atrial fibrillation. Patient states she feels short of breath. Patient states this is worse with walking. Patient denies any chest pain. Patient denies any nausea or vomiting. Patient denies any diaphoresis. Patient states she has a history of paroxysmal atrial fibrillation. Patient states she was recently diagnosed with bronchitis and has been on 2 courses of antibiotics for that. Patient believes that the bronchitis is causing her to go into atrial fibrillation. Physical Examination: Vital signs are stable except for tachycardia of 132. Patient is afebrile. Patient is in no acute distress. Oral mucosa is pink and moist. Neck is supple. Trachea is midline. There is no JVD. Heart was irregularly irregular and tachycardic. Lungs are clear and equal bilaterally. Abdomen is soft. Bowel sounds are normal. There is no tenderness. Cranial nerves II through XII are intact. There are no focal motor or sensory deficits. Extremities are intact. There is no calf tenderness or edema. Test Results: EKG showed atrial fibrillation with a rate of 151. There is occasional PVC noted. There are nonspecific ST-T wave changes noted. There are no prior EKGs available for comparison. Portable chest x-ray is obtained. There is no acute cardiopulmonary process. CBC, comprehensive metabolic profile, troponin were obtained and were essentially within normal limits. Emergency Department Course and Treatment: Patient was given a dose of Cardizem here. Patient remained in atrial fibrillation but her rate improved. Her heart rate started to go back up into the 120s and 130s. Patient was given a dose of oral metoprolol here. Patient was feeling better on reevaluation. Patient wants to go home. Patient was instructed to follow-up with her primary care physician and community artist in 3 to 5 days. Patient was instructed return if worse in any way. Patient understood and was agreeable with the plan. All questions were answered. Disposition: Discharge home Impression: Paroxysmal atrial fibrillation This note was generated with [email or web address] software. It may contain incorrect words, spelling, and punctuation that were not noted in review of the chart prior to signing ED Disposition - Plan for ED Patient: Disposition: Home or Assisted Living Diagnosis: Paroxysmal atrial fibrillation Instructions: ED AFIB Referrals: Sebastien Melgoza MD [Primary Care Provider] - 3-5 Days
[2020-05-13 21:15] VITALS: BP 141/93; PULSE 148; RESP 20; O2SAT 97
[2020-05-13] MEDS: dilTIAZem 25 MG/5 ML Vial IV BOLUS (21:16)
[2020-05-13] MEDS: 0.9% Normal Saline 1,000 ML 1000 ML IV (21:17)
[2020-05-13 21:25] VITALS: PULSE 110; RESP 17; O2SAT 97
[2020-05-13 21:27] VITALS: BP 141/93; PULSE 110; RESP 17; TEMP 36.8; O2SAT 97
[2020-05-13 21:29] LABS: Absolute Lymphocyte Count 0.96 X10^3/uL (0.83-4.51); Absolute Neutrophil Count 4.7 X10^3/uL (2.0-7.7); Basophil# 0.03 X10^3/uL; Basophil% 0.5 % (0-1); Eosinophil# 0.15 X10^3/uL; Eosinophils% 2.4 % (0-5); Hematocrit 40.2 % (37-47); Hemoglobin 12.9 g/dL (12.0-15.0); Lymphocyte # 0.96 X10^3/ul (4.0); Lymphocyte % 15.2 % (19-41); Mean Corp Hgb Conc 32.1 g/dL (32-36); Mean Corpuscular Hgb 28.4 pg (27.0-32.0); Mean Corpuscular Volume 88.5 fL (81-99); Mean Platelet Vol. 9.4 fl (6.2-12.0); Monocyte# 0.45 X10^3/uL; Monocyte% 7.1 % (0-10); NRBC Flagged by Analyzer 0 % (0-5); Neutrophil # 4.71 X10^3/uL (2.7-7.7); Neutrophil % 74.6 % (47-70); Platelet Count 307 K/mm3 (150-450); RBC Distribution Width CV 14.3 % (11.6-14.6); RBC Distribution Width SD 46.1 fl (35.1-43.9); Red Blood Count 4.54 M/mm3 (4.2-5.4); White Blood Count 6.3 K/mm3 (4.4-11.0)
[2020-05-13 21:50] LABS: ALB/GLOB Ratio 0.8 RATIO (0.9-2.4); AST(SGOT) 22 U/L (15-37); Alanine Aminotransfer ALT/SGPT 35 U/L (13-56); Albumin, Serum 3.1 g/dL (3.2-5.0); Alkaline Phosphatase 132 U/L (45-117); Anion Gap 6 (5-15); BUN 15 mg/dL (7-18); BUN/Creat Ratio 19.6 RATIO (10-20); Calcium,Total 9.1 mg/dL (8.5-10.1); Chloride 109 mmol/L (98-107); Creatinine, Serum 0.76 mg/dL (0.55-1.02); EST Glomerular Filtration Rate 80 mL/min (>60); Est Glom Filt Rate - Afr Amer 96 mL/min (>60); Globulin 3.8 g/dL (2.2-4.2); Glucose 101 mg/dL (74-106); Potassium 3.9 mmol/L (3.5-5.1); Protein, Total 6.9 g/dL (6.4-8.2); Sodium Level 141 mmol/L (136-145)
[2020-05-13 23:13] VITALS: BP 131/87; PULSE 122; PULSE 19; RESP 24; RESP 26; TEMP 36.7; O2SAT 98
[2020-05-13] MEDS: Metoprolol Tartrate 25 MG Tablet PO (23:15)
[2020-05-14 00:02] VITALS: BP 148/85; PULSE 114; RESP 22; O2SAT 97
== END 2020-05-14 00:02 | disposition home or self-care (01) ==
PROVIDERS: Emergency Provider Emergency Medicine; PCP Family Medicine
DX: I48.0 Paroxysmal atrial fibrillation (principal); E66.9 Obesity, unspecified
CPT/HCPCS: 71045; 80053; 84484; 85025; 93005; 96361; 96374; 99285; A4216

== ENCOUNTER → 2021-04-21 12:38 | Outpatient (CLI) | payer MEDICARE, OTHER, SELFPAY | PROVIDERS: PCP Family Medicine; Referring Provider Otolaryngology Otolaryngology/Facial Plastic Surgery; Visit Provider Otolaryngology Otolaryngology/Facial Plastic Surgery | DX: R05.9 Cough, unspecified (principal) | CPT/HCPCS: 87807 ==

== ENCOUNTER 2022-01-16 18:51 | Inpatient (IN) | payer MEDICARE, OTHER, SELFPAY ==
[2022-01-16 18:54] VITALS: BP 149/82; PULSE 77; RESP 16; TEMP 36.3; O2SAT 99; BMI 48.0
--- NOTE | 2022-01-16 20:10 | EKG12_ITS ---
Test Reason : DYSRHYTHMIA Blood Pressure : / mmHG Vent. Rate : 151 BPM Atrial Rate : 150 BPM P-R Int : 000 ms QRS Dur : 092 ms QT Int : 306 ms P-R-T Axes : 000 -03 176 degrees QTc Int : 485 ms Atrial fibrillation Voltage criteria for left ventricular hypertrophy Nonspecific ST and T wave abnormality Abnormal ECG Confirmed by ALANNA GUZMAN, HEIDY ([id number]), commercial production editor ALEX COLLIER ([id number]) on 01/18/2022 9:03:56 AM Referred By: TG Confirmed By:HEIDY MONDRAGON MD
[2022-01-16] MEDS: dilTIAZem 25 MG/5 ML Vial IV BOLUS (20:36)
[2022-01-16 20:37] VITALS: BP 119/96; PULSE 151; RESP 17; O2SAT 100
--- NOTE | 2022-01-16 20:38 | RAD_ITS ---
STUDY: XR Chest 1 View 01/16/2022 8:38 PM REASON FOR EXAM: Female, 71 years old. CHEST PAIN chest pain COMPARISON: 05/13/2020 TECHNIQUE: XR Chest 1 View FINDINGS: There is no demonstrated pleural abnormality. There are multiple median sternotomy wires. There is an atrial appendage device noted. Normal heart size. Normal mediastinum. Normal chidi. Prominent appearing increased interstitial lung markings. Normal visualized pulmonary arteries. There is atherosclerotic calcification of the aortic arch with tortuosity. There are diffuse degenerative changes of the visualized thoracic spine. There is degenerative osteoarthritis of the bilateral shoulders. There is no demonstrated abnormality of the visualized soft tissue structures of the upper abdomen. RAD/Chest 1 View (Portable) IMPRESSION: There are no acute findings. Electronically Signed: Jesus Alberto Neely MD at 21:10 EDT ,
[2022-01-16 20:44] LABS: Absolute Lymphocyte Count 1.61 X10^3/uL (0.83-4.51); Absolute Neutrophil Count 5.6 X10^3/uL (2.0-7.7); Basophil# 0.06 X10^3/uL; Basophil% 0.8 % (0-1); Eosinophil# 0.15 X10^3/uL; Eosinophils% 1.9 % (0-5); Hematocrit 40.7 % (37-47); Hemoglobin 12.7 g/dL (12.0-15.0); Lymphocyte # 1.61 X10^3/ul (0.83-4.51); Lymphocyte % 20.3 % (19-41); Mean Corp Hgb Conc 31.2 g/dL (32-36); Mean Corpuscular Hgb 27.2 pg (27.0-32.0); Mean Corpuscular Volume 87.2 fL (81-99); Mean Platelet Vol. 9.5 fl (6.2-12.0); Monocyte# 0.51 X10^3/uL; Monocyte% 6.4 % (0-10); NRBC Flagged by Analyzer 0 % (0-5); Neutrophil # 5.58 X10^3/uL (2.7-7.7); Neutrophil % 70.2 % (47-70); Platelet Count 349 K/mm3 (150-450); RBC Distribution Width CV 15.4 % (11.6-14.6); RBC Distribution Width SD 49.1 fl (35.1-43.9); Red Blood Count 4.67 M/mm3 (4.2-5.4); White Blood Count 7.9 K/mm3 (4.4-11.0)
--- NOTE | 2022-01-16 20:47 | EX.ED.DYSGE1 ---
HPI History of Present Illness Chief Complaint: Weakness Narrative Narrative: 71-year-old female presenting with generalized weakness. She states that she is having some palpitations. Has a history of atrial fibrillation and is anticoagulated. She is on Eliquis 5 mg p.o. daily. Patient states that she developed a cold last Saturday and since then has been having more runs of atrial fibrillation. She states she is normally not in A. fib. She states previously was changed from metoprolol to tartrate to metoprolol succinate and she was told that her blood pressure would write a little bit higher but her heart rate to be controlled. She states she has not changed her meds since then and she still having the runs of atrial fibrillation. She denies chest pain. She does have some mild shortness of breath and lightheadedness. No fever or chills. PFSH PFS Medical History Anxiety Atrial fibrillation Back pain Electrical isolation of left atrial appendage after cardiac ablation procedure for atrial fibrillation Hemorrhoid Murmur, cardiac Osteoarthritis Skin cancer, basal cell Uterine fibroid Home Medications apixaban 5 mg tablet (Eliquis) 5 mg PO DAILY 01/16/22 [History Last Taken Unknown] aspirin 81 mg tablet,delayed release 81 mg PO DAILY 01/16/22 [History Last Taken Unknown] metoprolol succinate 25 mg tablet,extended release 24 hr 25 tab PO BID 01/16/22 [History Last Taken Unknown] Allergy/AdvReac Type Severity Reaction Status Date / Time gluten Allergy Food Verified 01/16/22 18:57 Allergy wheat Allergy Food Verified 01/16/22 18:57 Allergy hydrocodone AdvReac Other Verified 01/16/22 18:57 Family History Mother Diabetes Heart disease Asthma Surgical History S/P tubal ligation Social History Smoking Status: Never smoker ROS ROS ED Constitutional Constitutional ED: Denies chills or fever(s) Eyes Eyes: Denies change in vision ENT ENT ED: Denies rhinorrhea Cardiovascular Cardiovascular: Reports palpitations and racing heartbeat; Denies chest pain Respiratory/Chest Respiratory/Chest: Denies cough or dyspnea Gastrointestinal Gastrointestinal: Denies abdominal pain or constipation Genitourinary Genitourinary ED: Denies dysuria Musculoskeletal Musculoskeletal: Denies arthralgias Integumentary Denies abscess Neurologic Neurologic: Denies headache(s) or paresthesias Psychiatric Psychiatric: Denies anxiety or depression Endocrine Endocrinology: Denies cold intolerance or heat intolerance EXAM Physical Exam Const Vital Signs: 01/16/22 18:54 01/16/22 19:58 01/16/22 20:29 Temperature 97.4 F L Temperature Source Temporal Pulse Rate 77 Respiratory Rate 16 Respiratory Effort Normal Non-Labored Respiratory Pattern Normal Blood Pressure 149/82 H Blood Pressure Mean 104 Pulse Ox 99 Oxygen Delivery Method Room Air Nasal Cannula Oxygen Flow Rate (L/min) 2 01/16/22 20:37 01/16/22 20:48 01/16/22 21:42 Temperature Temperature Source Pulse Rate 151 H 87 102 H Respiratory Rate 17 19 H 17 Respiratory Effort Respiratory Pattern Blood Pressure 119/96 H 103/58 L 102/30 L Blood Pressure Mean 103 73 54 Pulse Ox 100 100 100 Oxygen Delivery Method Nasal Cannula Nasal Cannula Nasal Cannula Oxygen Flow Rate (L/min) 2 2 2 01/16/22 23:11 01/16/22 23:20 Temperature Temperature Source Pulse Rate 122 H 138 H Respiratory Rate 17 18 Respiratory Effort Respiratory Pattern Blood Pressure 90/68 119/75 Blood Pressure Mean 75 89 Pulse Ox 100 100 Oxygen Delivery Method Nasal Cannula Nasal Cannula Oxygen Flow Rate (L/min) 2 2 MDM MDM MDM Narrative Medical decision making narrative: Patient presenting with generalized fatigue and palpitations. EKG shows atrial fibrillation at rate 151 bpm on my interpretation. She was given 25 of Cardizem. Her blood pressure was 149/82 however this has come down some. Heart was controlled. CBC shows no leukocytosis and hemoglobin is stable. Creatinine creatinine elevated at 1.78 with no comparison since 2019. GFR is also lower than previous at 30. BNP is elevated at 405 however chest x-ray my interpretation is no acute cardiopulmonary process and the radiologist agree. High-sensitivity troponin is 57. repeat is 58. Patient's heart rate has come up again while I am talking to her. She is ranging anywhere from 100-140. After discussing with the hospitalist and Dr. Noe patient will be started on amiodarone drip. Think she benefit from inpatient treatment due to ZACKERY and elevated troponins although they are not changing dramatically. She also needs heart rate control. Impression: 1. A. fib with RVR 2. ZACKERY Lab Data Attestation: I reviewed the patient's lab results. Labs: Laboratory Results - last 24 hr 01/16/22 01/16/22 01/16/22 20:25 20:25 20:25 WBC 7.9 RBC 4.67 Hgb 12.7 Hct 40.7 MCV 87.2 MCH 27.2 MCHC 31.2 L RDW Std Deviation 49.1 H RDW Coeff of Terrie 15.4 H Plt Count 349 MPV 9.5 Immature Gran % (Auto) 0.400 Neut % (Auto) 70.2 H Lymph % (Auto) 20.3 Bullock % (Auto) 6.4 Eos % (Auto) 1.9 Baso % (Auto) 0.8 Absolute Neuts (auto) 5.6 Absolute Lymphs (auto) 1.61 Nucleated RBC % 0 Sodium 140 Potassium 3.6 Chloride 106 Carbon Dioxide 28.0 Anion Gap 6 BUN 33 H Creatinine 1.78 H Estim Creat Clear Calc 25.40 Est GFR (MDRD) Af Amer 36 L Est GFR (MDRD) Non-Af 30 L BUN/Creatinine Ratio 18.5 Glucose 92 Calcium 9.4 Troponin I High Sens 57 H B-Natriuretic Peptide 405.8 H 01/16/22 22:54 WBC RBC Hgb Hct MCV MCH MCHC RDW Std Deviation RDW Coeff of Terrie Plt Count MPV Immature Gran % (Auto) Neut % (Auto) Lymph % (Auto) Bullock % (Auto) Eos % (Auto) Baso % (Auto) Absolute Neuts (auto) Absolute Lymphs (auto) Nucleated RBC % Sodium Potassium Chloride Carbon Dioxide Anion Gap BUN Creatinine Estim Creat Clear Calc Est GFR (MDRD) Af Amer Est GFR (MDRD) Non-Af BUN/Creatinine Ratio Glucose Calcium Troponin I High Sens 58 H B-Natriuretic Peptide Radiography Diagnostic Testing: Clinical Impression(s) from Imaging Studies Chest X-Ray 01/16/22 20:38 IMPRESSION: There are no acute findings. Electronically Signed: Jesus Alberto Neely MD at 21:10 EDT , Discharge Plan Triage Chief Complaint: Weakness ED Provider: Demario Gallegos Dx/Rx/DC Orders Prescriptions: No Action aspirin [Aspir-81] 81 mg Tablet,Delayed Release (Dr/Ec) 81 mg PO DAILY metoprolol succinate 25 mg tablet extended release 24 hr 25 tab PO BID Label Comments: TAKE 1 TABLET BY MOUTH EVERY DAY Eliquis 5 mg Tablet 5 mg PO DAILY Primary Care Provider: Ramiro Davis Referrals: Ramiro Davis MD [Primary Care Provider] -
[2022-01-16 20:48] VITALS: BP 103/58; PULSE 87; RESP 19; O2SAT 100
[2022-01-16 21:05] LABS: Anion Gap 6 (5-15); BUN 33 mg/dL (7-18); BUN/Creat Ratio 18.5 RATIO (10-20); Calcium,Total 9.4 mg/dL (8.5-10.1); Chloride 106 mmol/L (98-107); Creatinine, Serum 1.78 mg/dL (0.55-1.02); EST Glomerular Filtration Rate 30 mL/min (>60); Est Glom Filt Rate - Afr Amer 36 mL/min (>60); Glucose 92 mg/dL (74-106); Potassium 3.6 mmol/L (3.5-5.1); Sodium Level 140 mmol/L (136-145); Troponin-I HS (w/2H Reflex) 57 pg/mL (3.0-54.0)
[2022-01-16 21:10] LABS: BNP,B-Type NATRIURETIC PEPTIDE 405.8 pg/mL (0-100)
[2022-01-16] MEDS: 0.9% Normal Saline 1,000 ML 999 ML IV ×2 (21:17→23:20)
[2022-01-16 21:42] VITALS: BP 102/30; PULSE 102; RESP 17; O2SAT 100
[2022-01-16 22:35] LABS: Reflex Troponin-HS? (from REC) Y
--- NOTE | 2022-01-16 23:05 | HP.PCM.HOS_ITS ---
HPI - General General Date of Admission: 01/16/22 Date of Service: 01/16/22 Chief Complaint: Malaise HPI Narrative JATINDER RAMACHANDRAN, is a 71 F with a significant history of hypertension and atrial fibrillation status post ablation and cardioversion; and diastolic heart failure who presents to the emergency department with a 6-day history of a persistent malaise. Associated with symptom is flulike symptoms; and fatigue; and palpitations. With her home blood machine she realized that her heart rate was very variable. Her symptoms was reminiscent of previous episodes of A. fib. She report that previously she was on metoprolol titrate but it was changed to metoprolol succinate to better control her atrial fibrillation. [facility] Medical History Anxiety Atrial fibrillation Back pain Electrical isolation of left atrial appendage after cardiac ablation procedure for atrial fibrillation Hemorrhoid Murmur, cardiac Osteoarthritis Skin cancer, basal cell Uterine fibroid Home Medications apixaban 5 mg tablet (Eliquis) 5 mg PO DAILY 01/16/22 [History Last Taken Unknown] aspirin 81 mg tablet,delayed release 81 mg PO DAILY 01/16/22 [History Last Taken Unknown] metoprolol succinate 25 mg tablet,extended release 24 hr 25 tab PO BID 01/16/22 [History Last Taken Unknown] Allergy/AdvReac Type Severity Reaction Status Date / Time gluten Allergy Food Verified 01/16/22 18:57 Allergy wheat Allergy Food Verified 01/16/22 18:57 Allergy hydrocodone AdvReac Other Verified 01/16/22 18:57 Family History Mother Diabetes Heart disease Asthma Surgical History S/P tubal ligation Social History Smoking Status: Never smoker ROS ROS Narrative Pertinent positives and pertinent negatives as noted in HPI. All other systems were reviewed and are negative. Vital Signs Vital Signs Vital Signs: 01/16/22 18:54 01/16/22 19:58 01/16/22 20:29 Temperature 97.4 F L Temperature Source Temporal Pulse Rate 77 Respiratory Rate 16 Respiratory Effort Normal Non-Labored Respiratory Pattern Normal Blood Pressure 149/82 H Blood Pressure Mean 104 Pulse Ox 99 Oxygen Delivery Method Room Air Nasal Cannula Oxygen Flow Rate (L/min) 2 01/16/22 20:37 01/16/22 20:48 01/16/22 21:42 Temperature Temperature Source Pulse Rate 151 H 87 102 H Respiratory Rate 17 19 H 17 Respiratory Effort Respiratory Pattern Blood Pressure 119/96 H 103/58 L 102/30 L Blood Pressure Mean 103 73 54 Pulse Ox 100 100 100 Oxygen Delivery Method Nasal Cannula Nasal Cannula Nasal Cannula Oxygen Flow Rate (L/min) 2 2 2 Weight Weight: 127.006 kg Body Mass Index (BMI) 48.0 Physical Exam Narrative Physical exam: General: Well-nourished, well-developed. Head: Normocephalic, atraumatic, no tenderness Eyes: Vision is grossly intact. EOMI ENT, no trauma, moist mucous membranes, no rhinorrhea Neck: Nontender, full range of motion. CVS: Irregularly irregular rate and rhythm. Respiratory : clear to auscultation bilaterally, chest wall nontender, no wheezing Abdomen: Soft, nontender, nondistended, normal bowel sounds, no masses : Deferred Back: Nontender, no CVA tenderness, no midline spinal tenderness, deformities, step-offs Extremities: Nontender full range of motion, no trauma Skin: Normal color, no trauma, abrasions Neuro: Alert, oriented, cranial nerves II through XII grossly intact. Psychiatry: Normal mood. Normal affect. Not depressed. Not anxious. Results Lab / Micro Data Result Diagrams: 01/16/22 20:25 01/16/22 20:25 Labs: Laboratory Results - last 24 hr 01/16/22 20:25: WBC 7.9, RBC 4.67, Hgb 12.7, Hct 40.7, MCV 87.2, MCH 27.2, MCHC 31.2 L, RDW Std Deviation 49.1 H, RDW Coeff of Terrie 15.4 H, Plt Count 349, MPV 9.5, Immature Gran % (Auto) 0.400, Neut % (Auto) 70.2 H, Lymph % (Auto) 20.3, [place] % (Auto) 6.4, Eos % (Auto) 1.9, Baso % (Auto) 0.8, Absolute Neuts (auto) 5.6, Absolute Lymphs (auto) 1.61, Nucleated RBC % 0 01/16/22 20:25: Sodium 140, Potassium 3.6, Chloride 106, Carbon Dioxide 28.0, Anion Gap 6, BUN 33 H, Creatinine 1.78 H, Estim Creat Clear Calc 25.40, Est GFR (MDRD) Af Amer 36 L, Est GFR (MDRD) Non-Af 30 L, BUN/Creatinine Ratio 18.5, Glucose 92, Calcium 9.4, Troponin I High Sens 57 H 01/16/22 20:25: B-Natriuretic Peptide 405.8 H Micro: Microbiology 01/16/22 20:30 Nasal Secretion SARS-CoV-2 Antigen (Rapid) - Final Radiology Impression Chest X-Ray 01/16/22 20:38 IMPRESSION: There are no acute findings. Electronically Signed: Jesus Alberto Neely MD at 21:10 EDT Reading Location ID and State: [facility] / [place] , Service support , Assessment & Plan Assessment/Plan (1) Paroxysmal atrial fibrillation with RVR: PLAN: Received Cardizem 20 mg IV push at emergency department. Thereafter patient was hypotensive. Heart rate was oscillating and all over the place. Emergency department doctor discussed the case with cardiology. Started amiodarone bolus and drip. Continue Eliquis. Obtain records from other facility that patient goes. Potassium on presentation was 3.6; replace. Trend BMP. Check Mg and TSH. Review of Record showed on 04/10/2021 patient had an echocardiogram with WAYNE prior to cardioversion. EF was 65%. Left atrium showed mild dilatation with; mitral valve showed moderate 2+ regurgitation; aortic valve showed normal functioning bioprosthetic valve. Inpatient cardiology consult. (2) HTN (hypertension): PLAN: With hypotensive episodes hold home metoprolol. Trend blood pressures. (3) Elevated troponin: PLAN: Initial troponin was 57. Trended to 58. Likely secondary to type II [place] from a tachyarrhythmia. Trend. (4) Acute kidney injury superimposed on CKD: PLAN: Plan ZACKERY on CKD stage IIIb. Creatinine on presentation was 1.78. Review of community records show that on 11/02/2021 her creatinine was 1.28; BUN was 26. Estimated GFR was 42.2. On 10/02/2021 creatinine was 1.28. BUN was 27. eGFR was 43.4. IV fluid bolus ordered emergency department. Gentle IV hydration. Trend BMP. Charges/Coding Visit Charges Inpatient E&M: 72466 Init Hosp L3
[2022-01-16 23:11] VITALS: BP 90/68; PULSE 122; RESP 17; O2SAT 100
[2022-01-16 23:19] LABS: Troponin-I HS 58 pg/mL (3.0-54.0)
[2022-01-16 23:20] VITALS: BP 119/75; PULSE 138; RESP 18; O2SAT 100
[2022-01-16 23:46] LABS: Magnesium 2.3 mg/dL (1.6-2.6)
[2022-01-17] VITALS (38 sets, daily range): BP systolic 93–168; BP diastolic 52–121; PULSE 58–170; RESP 11–28; TEMP 36.5–37; O2SAT 93–100; BMI 48.6
--- NOTE | 2022-01-17 01:06 | NURSING ---
pt herat rate from [address] neri notified. Wait orders. bp 103
[2022-01-17] MEDS: 0.9% Normal Saline 1,000 ML 75 ML IV ×2 (02:36→15:26)
[2022-01-17] MEDS: 0.9% Saline Lock 10 ML Syringe IV ×4 (02:45→21:25)
[2022-01-17] MEDS: Amiodarone 360 MG in Dextrose 5% Viaflo Bag 192.8 ML 33.3 MG CONT INF (03:00)
[2022-01-17 03:08] LABS: Absolute Lymphocyte Count 1.22 X10^3/uL (0.83-4.51); Absolute Neutrophil Count 4.9 X10^3/uL (2.0-7.7); Basophil# 0.05 X10^3/uL; Basophil% 0.7 % (0-1); Eosinophil# 0.19 X10^3/uL; Eosinophils% 2.8 % (0-5); Hematocrit 32.3 % (37-47); Hemoglobin 10.2 g/dL (12.0-15.0); Lymphocyte # 1.22 X10^3/ul (0.83-4.51); Lymphocyte % 18.2 % (19-41); Mean Corp Hgb Conc 31.6 g/dL (32-36); Mean Corpuscular Hgb 27.1 pg (27.0-32.0); Mean Corpuscular Volume 85.9 fL (81-99); Mean Platelet Vol. 9.4 fl (6.2-12.0); Monocyte# 0.29 X10^3/uL; Monocyte% 4.3 % (0-10); NRBC Flagged by Analyzer 0 % (0-5); Neutrophil # 4.91 X10^3/uL (2.7-7.7); Neutrophil % 73.6 % (47-70); Platelet Count 296 K/mm3 (150-450); RBC Distribution Width CV 15.6 % (11.6-14.6); RBC Distribution Width SD 48.6 fl (35.1-43.9); Red Blood Count 3.76 M/mm3 (4.2-5.4); White Blood Count 6.7 K/mm3 (4.4-11.0)
[2022-01-17 03:34] LABS: Troponin-I HS 59 pg/mL (3.0-54.0)
[2022-01-17 03:55] LABS: Anion Gap 4 (5-15); BUN 29 mg/dL (7-18); BUN/Creat Ratio 20.7 RATIO (10-20); Calcium,Total 8.5 mg/dL (8.5-10.1); Chloride 109 mmol/L (98-107); EST Glomerular Filtration Rate 39 mL/min (>60); Est Glom Filt Rate - Afr Amer 48 mL/min (>60); Estimated Creatinine Clearance 32.29 ml/min; Glucose 109 mg/dL (74-106); Sodium Level 139 mmol/L (136-145); Thyroid Stim Hormone (TSH) 5.54 uIU/mL (0.358-3.74)
[2022-01-17] MEDS: dilTIAZem 25 MG/5 ML Vial 5 MG IV BOLUS (05:00)
[2022-01-17] MEDS: Metoprolol Tartrate 5 MG/5 ML Vial IV (06:52)
[2022-01-17] MEDS: Digoxin 250 MCG/ML Ampul 500 MCG IV (08:17)
[2022-01-17] MEDS: APIXABAN 5 MG TABLET PO (08:22)
[2022-01-17] MEDS: Aspirin E.C. 81 MG Tablet PO (08:22)
[2022-01-17] MEDS: Metoprolol(XL)Succ 50 MG Tablet PO (08:22)
--- NOTE | 2022-01-17 08:24 | PN.HOSP_ITS ---
Subjective Subjective Feels well. Denies chest pain, palpitation, SOB. Objective Data Objective Data Vital Signs: Vital Signs Temp Pulse Resp BP Pulse Ox O2 Del Method O2 Flow Rate 36.7 C 120 H 21 H 129/113 H 98 Room Air 2 01/17/22 02:30 01/17/22 08:22 01/17/22 07:00 01/17/22 07:00 01/17/22 07:23 01/17/22 07:45 01/17/22 02:49 Oxygen Flow Rate (L/min) 2 Oxygen Delivery Method Room Air Weight: 128.6 kg Body Mass Index (BMI) 48.6 Intake & Output: Intake and Output for Last 24 Hours 01/15/22 01/16/22 01/17/22 23:59 23:59 23:59 Intake Total 1000 / 1000 1476.22 / 1476.22 Balance 1000 / 1000 1476.22 / 1476.22 Lab / Micro Data Result Diagrams: 01/17/22 02:55 01/17/22 02:55 Labs: Laboratory Results - last 24 hr 01/16/22 20:25: WBC 7.9, RBC 4.67, Hgb 12.7, Hct 40.7, MCV 87.2, MCH 27.2, MCHC 31.2 L, RDW Std Deviation 49.1 H, RDW Coeff of Terrie 15.4 H, Plt Count 349, MPV 9.5, Immature Gran % (Auto) 0.400, Neut % (Auto) 70.2 H, Lymph % (Auto) 20.3, [place] % (Auto) 6.4, Eos % (Auto) 1.9, Baso % (Auto) 0.8, Absolute Neuts (auto) 5.6, Absolute Lymphs (auto) 1.61, Nucleated RBC % 0 01/16/22 20:25: Sodium 140, Potassium 3.6, Chloride 106, Carbon Dioxide 28.0, Anion Gap 6, BUN 33 H, Creatinine 1.78 H, Estim Creat Clear Calc 25.40, Est GFR (MDRD) Af Amer 36 L, Est GFR (MDRD) Non-Af 30 L, BUN/Creatinine Ratio 18.5, Glucose 92, Calcium 9.4, Troponin I High Sens 57 H 01/16/22 20:25: B-Natriuretic Peptide 405.8 H 01/16/22 22:54: Troponin I High Sens 58 H 01/16/22 22:54: Magnesium 2.3 01/17/22 02:55: WBC 6.7, RBC 3.76 L, Hgb 10.2 L, Hct 32.3 L, MCV 85.9, MCH 27.1, MCHC 31.6 L, RDW Std Deviation 48.6 H, RDW Coeff of Terrie 15.6 H, Plt Count 296, MPV 9.4, Immature Gran % (Auto) 0.400, Neut % (Auto) 73.6 H, Lymph % (Auto) 18.2 L, [place] % (Auto) 4.3, Eos % (Auto) 2.8, Baso % (Auto) 0.7, Absolute Neuts (auto) 4.9, Absolute Lymphs (auto) 1.22, Nucleated RBC % 0 01/17/22 02:55: Sodium 139, Potassium 4.0, Chloride 109 H, Carbon Dioxide 26.0, Anion Gap 4 L, BUN 29 H, Creatinine 1.40 H, Estim Creat Clear Calc 32.29, Est GFR (MDRD) Af Amer 48 L, Est GFR (MDRD) Non-Af 39 L, BUN/Creatinine Ratio 20.7 H , Glucose 109 H, Calcium 8.5, TSH 5.54 H 01/17/22 02:55: Troponin I High Sens 59 H Micro: Microbiology 01/16/22 20:30 Nasal Secretion SARS-CoV-2 Antigen (Rapid) - Final Radiography Diagnostic Testing: Radiology Impression Chest X-Ray 01/16/22 20:38 IMPRESSION: There are no acute findings. Electronically Signed: Jesus Alberto Neely MD at 21:10 EDT Reading Location ID and State: [facility] / [place] , Service support , Physical Exam Const alert and no apparent distress Resp normal respiratory effort, no retractions, no use of accessory muscles and clear to auscultation bilaterally Cardio Cardio Narrative: Irregularly irregular GI normal to inspection, nondistended, normoactive bowel sounds, soft to palpation, non-tender and non-distended Psych affect normal Assessment & Plan Assessment/Plan (1) Paroxysmal atrial fibrillation with RVR: PLAN: Received Cardizem 20 mg IV push at emergency department. Thereafter patient was hypotensive. Heart rate was oscillating and all over the place. Emergency department doctor discussed the case with cardiology. Started amiodarone bolus and drip. Continue Eliquis. Obtain records from other facility that patient goes. Potassium on presentation was 3.6; replace. Trend BMP. Check Mg and TSH. Review of Record showed on 04/10/2021 patient had an echocardiogram with WAYNE prior to cardioversion. EF was 65%. Left atrium showed mild dilatation with; mitral valve showed moderate 2+ regurgitation; aortic valve showed normal functioning bioprosthetic valve. Inpatient cardiology consult. Cardioversion today. (2) HTN (hypertension): PLAN: With hypotensive episodes hold home metoprolol. Trend blood pressures. (3) Elevated troponin: PLAN: Initial troponin was 57. Trended to 58. Likely secondary to type II [place] from a tachyarrhythmia. Trend. (4) Acute kidney injury superimposed on CKD: PLAN: Plan ZACKERY on CKD stage IIIb. Creatinine on presentation was 1.78. Review of community records show that on 11/02/2021 her creatinine was 1.28; BUN was 26. Estimated GFR was 42.2. On 10/02/2021 creatinine was 1.28. BUN was 27. eGFR was 43.4. IV fluid bolus ordered emergency department. Gentle IV hydration. Trend BMP. Charges/Coding Visit Charges Inpatient E&M: 45656 Subs Hosp L2
--- NOTE | 2022-01-17 08:46 | PCM.CONS.C ---
Assessment & Plan Assessment/Plan (1) Paroxysmal atrial fibrillation with RVR: PLAN: The patient has a longstanding history of recurrent atrial fibrillation/paroxysmal atrial fibrillation. She states she has been treated with multiple rate limiting medications as well as antiarrhythmic medication with amiodarone. She states she was no longer on amiodarone as it did not seem to benefit her in the long run. She believes she has undergone at least 4 synchronized biphasic DC cardioversions. She states she has undergone an EPS/RFA. She believes the last time she may have been in atrial fibrillation was in November of this year. At the present time she is being monitored. An attempt is being made with rate limiting medications and IV amiodarone to assist in slowing her ventricular rate and/or potentially bringing her back into sinus rhythm. If these attempts do not work she may need to be considered for another synchronized biphasic DC cardioversion to regain sinus rhythm, even if only temporarily, until she can be further evaluated by her union organiser at [place], [place]. The procedure and risk were discussed with her. She was agreeable to this approach. Based upon her history with the atrial fibrillation she may eventually need to be considered for an AV node ablation with PPM. (2) S/P AVR (aortic valve replacement): PLAN: She states she has been diagnosed with a bicuspid aortic valve which progressively became stenotic over time. She states she underwent AVR in the past at the [facility] [place]. An attempt will be made to obtain cardiovascular records for continuity of care. (3) S/P CABG (coronary artery bypass graft): PLAN: She states that she underwent a single-vessel CABG in the past at the time of her AVR. Again an attempt was made to obtain her previous [facility] records for continuity of care. (4) Elevated troponin: PLAN: She has had a mildly elevated troponin. This may be a type II event brought out by her atrial dysrhythmia with rapid ventricular response superimposed upon her underlying previously diagnosed cardiovascular disease process. At the moment she is without any symptoms of acute coronary syndrome. She does not appear to have any acute electrocardiographic changes. She will continue medical management. It may not be unreasonable to obtain a transthoracic echocardiogram based upon her ongoing issues to evaluate not only her atrial size but her left ventricular wall motion and systolic function. (5) Hyperlipidemia: PLAN: She should continue risk factor evaluation care as deemed appropriate (6) HTN (hypertension): PLAN: Her blood pressure will need to be followed. Her medications can be adjusted accordingly. Addt'l Comments The above was discussed and reviewed with the patient. The patient's case had been previously discussed with the [facility] emergency department staff. The patient's case has also been discussed with Dr. Etienne pulmonology/critical care medicine who agreed to participate in her care with respect to anesthesia if she were to proceed with a synchronized biphasic DC cardioversion. This note was generated using a voice recognition system and there may be incorrect words, spelling or punctuation that were not noted when reviewing the office note prior to saving. HPI Consult Data Date of Consult: 01/17/22 HPI Narrative HPI Narrative: JATINDER RAMACHANDRAN, is a 71 year old white female who presents for cardiovascular consultation based upon concerns of recurrent atrial fibrillation with RVR status post medical management/synchronized biphasic DC cardioversion x4/EPS/RFA superimposed upon a history of a bicuspid aortic valve status post aortic valve replacement and possible single-vessel CABG (previously performed at [facility]). She states she follows with casting associate from [facility] for both her general cardiovascular care and her electrophysiology care. She notes that she has not been feeling well, being more tired and fatigued, for the last 2 days and felt that she may have been back in atrial fibrillation. Thus she presented to the [facility] emergency department for additional evaluation and care. She denies ongoing symptoms of classic angina pectoris. She has had no overt issues of acute CHF or pulmonary edema. She believes she may have developed some element of lower extremity peripheral pitting edema. There has been no near-syncope or syncope. In the emergency department she was found to have a mildly elevated high-sensitivity troponin I level, which, on subsequent follow-up studies has not significantly changed. Her ECG appeared to demonstrate atrial fibrillation with nonspecific ST and T wave abnormality. She has not had additional cardiovascular studies performed at [facility] as all her care has been performed in either [place], [place], [place], [place], or [place], [place]. In the Emergency Department she was treated with IV diltiazem. She was reported as having transient hypotension which improved with IV fluids. She was then placed on IV amiodarone therapy. She was referred to the PCU for further inpatient evaluation and care. She states she has been on long-term oral systemic anticoagulant therapy with apixaban/Eliquis. She notes it was transiently interrupted for approximately 2 days in November of this year based upon a concern of underlying nephrolithiasis. She states it was quickly restarted and she has been on it since that time without interruption. [facility] Medical History Anxiety Atrial fibrillation Back pain Electrical isolation of left atrial appendage after cardiac ablation procedure for atrial fibrillation Hemorrhoid Murmur, cardiac Osteoarthritis Skin cancer, basal cell Uterine fibroid Home Medications apixaban 5 mg tablet (Eliquis) 5 mg PO DAILY 01/16/22 [History Last Taken Unknown] aspirin 81 mg tablet,delayed release 81 mg PO DAILY 01/16/22 [History Last Taken Unknown] metoprolol succinate 25 mg tablet,extended release 24 hr 25 tab PO BID 01/16/22 [History Last Taken Unknown] Allergy/AdvReac Type Severity Reaction Status Date / Time gluten Allergy Food Verified 01/16/22 18:57 Allergy wheat Allergy Food Verified 01/16/22 18:57 Allergy hydrocodone AdvReac Other Verified 01/16/22 18:57 Family History Mother Diabetes Heart disease Asthma Surgical History S/P tubal ligation Social History Smoking Status: Never smoker ROS Constitutional Constitutional: Reports as per HPI and fatigue Eyes Eyes: Reports as per HPI ENT HEENT: Reports as per HPI Cardiovascular Cardiovascular: Reports edema Respiratory/Chest Respiratory/Chest: Reports as per HPI Gastrointestinal Gastrointestinal: Reports as per HPI Genitourinary Genitourinary: Reports as per HPI Musculoskeletal Musculoskeletal: Reports as per HPI Integumentary Integumentary: Reports as per HPI Neurologic Neurologic: Reports as per HPI Physical Exam Narrative This is a 71-year-old white female who appears to be resting reasonably comfortably at the moment in no acute distress. Const alert, oriented x3 and no apparent distress Orientation / Consciousness: awake HEENT normocephalic, head/scalp atraumatic and hearing grossly normal bilaterally Eyes PERRL, EOMs intact bilaterally and conjunctivae normal Neck full ROM, supple and no JVD Resp clear to auscultation bilaterally Cardio Palpation: abnormal PMI Rate: tachycardic Rhythm: abnormal rhythm irregularly irregular Heart Sounds: S1 normal and S2 normal GI normal to inspection, nondistended, normoactive bowel sounds Extremity General Extremity: edema bilateral lower extremity Details: mild Skin no rashes or lesions noted Psych mental status grossly normal Risk Stratification Risk Stratification Applicable: Yes Age >/= 65: Yes >/= 3 CAD Risk Factors (HTN, HLD, DM, family hx of CAD, or current smoker): Yes Aspirin Use in the Past 7 Days: Yes Severe Angina (>/= episodes in 24 hours): No EKG ST Changes >/= 0.5mm: No Positive Cardiac Marker: Yes LEE ANN Risk Stratification Score: 4 LEE ANN % Risk: 20% Risk Procedure Criteria Type of Procedure Procedure Type: Elective Elective Risks - COVID COVID Risk Discussion: The surgeon/proceduralist and patient have discussed in detail the risk of exposure to and/or potential harm posed by the COVID-19 virus with having a surgery/procedure at this time versus the risk of delaying the surgery/procedure. It is not possible to know either the risk of delaying the surgery or procedure or chance of getting an infection with perfect accuracy, but a joint decision was made between the patient and the surgeon/proceduralist to proceed at this time with the scheduled surgery/procedure as indicated on the consent form. Objective Data Vital Signs: Vital Signs Temp Pulse Resp BP Pulse Ox O2 Del Method O2 Flow Rate 98.1 F 120 H 21 H 129/113 H 98 Room Air 2 01/17/22 02:30 01/17/22 08:22 01/17/22 07:00 01/17/22 07:00 01/17/22 07:23 01/17/22 07:45 01/17/22 02:49 Oxygen Flow Rate (L/min) 2 Oxygen Delivery Method Room Air Weight: 283 lb 8.231 oz Body Mass Index (BMI) 48.6 Intake & Output: Intake and Output for Last 24 Hours 01/15/22 01/16/22 01/17/22 23:59 23:59 23:59 Intake Total 1000 / 1000 1476.22 / 1476.22 Balance 1000 / 1000 1476.22 / 1476.22 Lab / Micro Data Result Diagrams: 01/17/22 02:55 01/17/22 02:55 Labs: Laboratory Results - last 24 hr 01/16/22 20:25: WBC 7.9, RBC 4.67, Hgb 12.7, Hct 40.7, MCV 87.2, MCH 27.2, MCHC 31.2 L, RDW Std Deviation 49.1 H, RDW Coeff of Terrie 15.4 H, Plt Count 349, MPV 9.5, Immature Gran % (Auto) 0.400, Neut % (Auto) 70.2 H, Lymph % (Auto) 20.3, [place] % (Auto) 6.4, Eos % (Auto) 1.9, Baso % (Auto) 0.8, Absolute Neuts (auto) 5.6, Absolute Lymphs (auto) 1.61, Nucleated RBC % 0 01/16/22 20:25: Sodium 140, Potassium 3.6, Chloride 106, Carbon Dioxide 28.0, Anion Gap 6, BUN 33 H, Creatinine 1.78 H, Estim Creat Clear Calc 25.40, Est GFR (MDRD) Af Amer 36 L, Est GFR (MDRD) Non-Af 30 L, BUN/Creatinine Ratio 18.5, Glucose 92, Calcium 9.4, Troponin I High Sens 57 H 01/16/22 20:25: B-Natriuretic Peptide 405.8 H 01/16/22 22:54: Troponin I High Sens 58 H 01/16/22 22:54: Magnesium 2.3 01/17/22 02:55: WBC 6.7, RBC 3.76 L, Hgb 10.2 L, Hct 32.3 L, MCV 85.9, MCH 27.1, MCHC 31.6 L, RDW Std Deviation 48.6 H, RDW Coeff of Terrie 15.6 H, Plt Count 296, MPV 9.4, Immature Gran % (Auto) 0.400, Neut % (Auto) 73.6 H, Lymph % (Auto) 18.2 L, [place] % (Auto) 4.3, Eos % (Auto) 2.8, Baso % (Auto) 0.7, Absolute Neuts (auto) 4.9, Absolute Lymphs (auto) 1.22, Nucleated RBC % 0 01/17/22 02:55: Sodium 139, Potassium 4.0, Chloride 109 H, Carbon Dioxide 26.0, Anion Gap 4 L, BUN 29 H, Creatinine 1.40 H, Estim Creat Clear Calc 32.29, Est GFR (MDRD) Af Amer 48 L, Est GFR (MDRD) Non-Af 39 L, BUN/Creatinine Ratio 20.7 H, Glucose 109 H, Calcium 8.5, TSH 5.54 H 01/17/22 02:55: Troponin I High Sens 59 H Micro: Microbiology 01/16/22 20:30 Nasal Secretion SARS-CoV-2 Antigen (Rapid) - Final Rhythm Strip Rhythm Strip: A-fib Cardiology Labs/Tests 01/16/22 20:25: WBC 7.9, RBC 4.67, Hgb 12.7, Hct 40.7, MCV 87.2, MCH 27.2, MCHC 31.2 L, Plt Count 349, MPV 9.5, Immature Gran % (Auto) 0.400, Neut % (Auto) 70.2 H, Lymph % (Auto) 20.3, [place] % (Auto) 6.4, Eos % (Auto) 1.9, Baso % (Auto) 0.8, Absolute Neuts (auto) 5.6, Nucleated RBC % 0 01/16/22 20:25: Sodium 140, Potassium 3.6, Chloride 106, Carbon Dioxide 28.0, Anion Gap 6, BUN 33 H, Creatinine 1.78 H, Est GFR (MDRD) Af Amer 36 L, Est GFR (MDRD) Non-Af 30 L, BUN/Creatinine Ratio 18.5, Glucose 92, Calcium 9.4 01/16/22 20:25: B-Natriuretic Peptide 405.8 H 01/16/22 22:54: Magnesium 2.3 01/17/22 02:55: WBC 6.7, RBC 3.76 L, Hgb 10.2 L, Hct 32.3 L, MCV 85.9, MCH 27.1, MCHC 31.6 L, Plt Count 296, MPV 9.4, Immature Gran % (Auto) 0.400, Neut % (Auto) 73.6 H, Lymph % (Auto) 18.2 L, [place] % (Auto) 4.3, Eos % (Auto) 2.8, Baso % (Auto) 0.7, Absolute Neuts (auto) 4.9, Nucleated RBC % 0 01/17/22 02:55: Sodium 139, Potassium 4.0, Chloride 109 H, Carbon Dioxide 26.0, Anion Gap 4 L, BUN 29 H, Creatinine 1.40 H, Est GFR (MDRD) Af Amer 48 L, Est GFR (MDRD) Non-Af 39 L, BUN/Creatinine Ratio 20.7 H, Glucose 109 H, Calcium 8.5 Rhythm: Atrial fibrillation EKG: As noted above Radiography Diagnostic Testing: Radiology Impression Chest X-Ray 01/16/22 20:38 IMPRESSION: There are no acute findings. Electronically Signed: Jesus Alberto Neeyl MD at 21:10 EDT ,
[2022-01-17] MEDS: Amiodarone 360 MG in Dextrose 5% Viaflo Bag 192.8 ML 16.7 MG CONT INF ×2 (09:35→21:26)
--- NOTE | 2022-01-17 12:17 | EKG12_ITS ---
Test Reason : pre-cardioversion Blood Pressure : / mmHG Vent. Rate : 061 BPM Atrial Rate : 061 BPM P-R Int : 196 ms QRS Dur : 084 ms QT Int : 426 ms P-R-T Axes : 063 -02 260 degrees QTc Int : 428 ms Normal sinus rhythm Left ventricular hypertrophy with repolarization abnormality ( R in aVL ) Nonspecific ST-Segment Abnormality Abnormal ECG Confirmed by ALANNA GUZMAN, HEIDY ([id number]), technical writer and editor ALEX COLLIER ([id number]) on 01/19/2022 9:52:06 AM Referred By: Alanna Confirmed By:HEIDY MONDRAGON MD
[2022-01-17] MEDS: Propofol 200 MG/20 ML Vial IV BOLUS (12:50)
--- NOTE | 2022-01-17 12:52 | NURSING ---
Successful cardioversion completed at bedside by Dr. Etienne and Dr. Noe. One shock delivered at 200J.
--- NOTE | 2022-01-17 13:11 | EKG12_ITS ---
Test Reason : pre-cardioversion Blood Pressure : / mmHG Vent. Rate : 117 BPM Atrial Rate : 000 BPM P-R Int : 000 ms QRS Dur : 094 ms QT Int : 322 ms P-R-T Axes : 000 -05 212 degrees QTc Int : 449 ms Atrial fibrillation with rapid ventricular response Minimal voltage criteria for LVH, may be normal variant ( R in aVL ) Nonspecific ST & T wave abnormality, consider inferolateral ischemia Abnormal ECG Confirmed by ALANNA GUZMAN, HEIDY ([id number]), features editor ALEX COLLIER ([id number]) on 01/19/2022 9:52:29 AM Referred By: Pino Mena Confirmed By:HEIDY MONDRAGON MD
--- NOTE | 2022-01-17 13:12 | CARDIOVERS_ITS ---
Cardioversion Cardioversion: Date: 01-17-2022 Procedure: Synchronized Biphasic DC Cardioversion Indications: Atrial fibrillation Consent: Per the Patient Anesthesia: per Dr. Etienne of pulmonology and critical care medicine with propofol 60 mg IV push total Procedure: Synchronized Biphasic DC Cardioversion: 200 J x 1: Result: Sinus rhythm Complications: no apparent complications This note was generated with [employer] dictation software. It may contain incorrect words, spelling, and punctuation that were not noted in checking the note before signing.
--- NOTE | 2022-01-17 13:23 | PCM.OP.PRO ---
Procedure Report Date of Procedure: 01/17/22 CONSCIOUS SEDATION REPORT BRIEF HISTORY OF PRESENT ILLNESS: The patient is a 71-year-old female who presented to [facility] for shortness of breath secondary to A. fib with RVR. The patient is chronically anticoagulated and has had 4 cardioversions previously. The patient reports no PO intake since midnight. The patient does not have a history of TONY, but does have obesity and snores. The patient reports no history of smoking and COPD. The patient denies any recent constitutional symptoms such as fevers, chills, nausea or vomiting. The patient denies previous applicable anesthetic complications. PHYSICAL EXAMINATION: VITAL SIGNS: Reviewed and were acceptable. GENERAL: The patient is a female, in no apparent distress, speaking in full sentences. HEENT: Normocephalic, atraumatic. Mucous membranes are moist and pink. Good mouth opening noted. Trachea is midline. Good neck mobility. MP IV CHEST: S1, S2 irregularly irregular. No murmurs, rubs or gallops were noted. LUNGS: Clear to auscultation bilaterally without appreciable wheezes, rales or rhonchi. ABDOMEN: Soft, nontender, nondistended. Positive bowel sounds. EXTREMITIES: There is no clubbing, cyanosis or edema. ASA Class: II DESCRIPTION OF PROCEDURE: After confirmation of informed consent, the patient's anesthesia plan was reviewed in detail. Propofol was chosen. Risks and benefits were reviewed and the patient agreed to proceed. At 12:50 PM, the patient was given 40 mg of propofol. The patient required a total of 60 mg of propofol throughout the procedure to achieve appropriate sedation. The patient achieved an appropriate level of sedation and received 1 attempt synchronized cardioversion, at [address] Noe at the bedside. This was successful in achieving normal sinus rhythm. The patient was monitored until 1:05 PM, at which time the patient reached their baseline mental status and function. The patient tolerated the procedure well. COMPLICATIONS: None ESTIMATED BLOOD LOSS: None RECOMMENDATIONS: Okay to recover in usual fashion. Procedures Pulmonary 9xxxx: [id number] Con Sedation
--- NOTE | 2022-01-17 14:45 | CASEMGMT ---
LOGAN MATTHEWS assessment: Face to face with pt for initial transition planning/care coordination assessment. LOGAN MATTHEWS introduced self and role at [facility], pt voices understanding and consents to assessment. Pt is A/Ox4 and answers all questions appropriately. Pt is in no distress on room air.? Care providers, pharmacy,?and demographics verified. ? Presentation: Pt c/o lightheaded and weak since last week Admitting dx: Afib RVR PCP: Ryan Specialists: Fredy, cardio at [facility]; Gabriel Diez, cardio at [facility]; Beni Fletcher, uro at [facility] Preferred Pharmacy: [facility]pt is already on Eliquis for Afib and states no concern with cost Insurance: MCR A/B, PT choices Prescription Benefit:?[employer] Living Will/HPOA: Pt states does not have LW/HPOA but states they are working with food management aide to get this completed at this time. LNOK: Donis Gar, daughter; Sonia Gar, son Living Arrangements: Pt lives alone on main level of 2 story home and states no concerns at home. Pt is independent with ADL's. Transportation: Pt drives self and states no transportation concerns. DME/HHC: Pt has walker and states no need for any further DME. Pt states no hx of HHC or SNF in past. Pt states no concerns with going home at time of discharge. Pt is retired. Pt states does not smoke cigarettes or drink ETOH. Pt voices no further concerns/needs. CM to follow for any further discharge planning/needs. Advised pt to ask for CM if any further questions/concerns/needs arise, voices understanding. Pt Goal: Home ? Plan: Home [place] LOGAN MATTHEWS
[2022-01-18] VITALS (15 sets, daily range): BP systolic 134–167; BP diastolic 51–85; PULSE 63–73; RESP 16–29; TEMP 36.1–36.7; O2SAT 82–100
[2022-01-18] MEDS: Mag Hydrox/Al Hydrox/Simeth 30 ML UDC PO (00:43)
[2022-01-18] MEDS: 0.9% Normal Saline 1,000 ML 75 ML IV (04:26)
--- NOTE | 2022-01-18 07:45 | PN.HOSP_ITS ---
Subjective Subjective Feels good. No events overnight. Objective Data Objective Data Vital Signs: Vital Signs Temp Pulse Resp BP Pulse Ox O2 Del Method O2 Flow Rate 36.6 C 64 24 H 138/51 H 92 Room Air 2 01/18/22 04:00 01/18/22 07:00 01/18/22 07:00 01/18/22 07:00 01/18/22 07:06 01/18/22 07:06 01/18/22 05:00 Oxygen Flow Rate (L/min) 2 Oxygen Delivery Method Room Air Weight: 128.6 kg Body Mass Index (BMI) 48.6 Intake & Output: Intake and Output for Last 24 Hours 01/16/22 01/17/22 01/18/22 23:59 23:59 23:59 Intake Total 1000 / 1000 3509.56 / 4168.76 1706.10 / 1706.10 Balance 1000 / 1000 3509.56 / 4168.76 1706.10 / 1706.10 Lab / Micro Data Result Diagrams: 01/17/22 02:55 01/18/22 04:46 Micro: Microbiology 01/16/22 20:30 Nasal Secretion SARS-CoV-2 Antigen (Rapid) - Final Rhythm Strip Rhythm Strip: A-fib Physical Exam Const alert and no apparent distress Resp normal respiratory effort, no retractions, no use of accessory muscles and clear to auscultation bilaterally Cardio regular rate, regular rhythm, S1 normal heart sound and S2 normal heart sound GI normal to inspection, nondistended, normoactive bowel sounds and soft to palpation Assessment & Plan Assessment/Plan (1) Paroxysmal atrial fibrillation with RVR: PLAN: Received Cardizem 20 mg IV push at emergency department. Thereafter patient was hypotensive. Heart rate was oscillating and all over the place. Emergency department doctor discussed the case with cardiology. Started amiodar one bolus and drip. Continue Eliquis. Obtain records from other facility that patient goes. Potassium on presentation was 3.6; replace. Trend BMP. Check Mg and TSH. Review of Record showed on 04/10/2021 patient had an echocardiogram with WAYNE prior to cardioversion. EF was 65%. Left atrium showed mild dilatation with; mitral valve showed moderate 2+ regurgitation; aortic valve showed normal fun ctioning bioprosthetic valve. Inpatient cardiology consult. Cardioversion 01/17. anticoagulated on apixaban. 01/18: amiodarone gtt dc'd, on PO amiodarone Follow up with Dr. Diez (2) HTN (hypertension): PLAN: fair control (3) Elevated troponin: PLAN: Initial troponin was 57. Trended to 58. Likely secondary to type II NC from a tachyarrhythmia. Trend. (4) Acute kidney injury superimposed on CKD: PLAN: ZACKERY on CKD stage IIIb. Creatinine on presentation was 1.78. Review of community records show that on 11/02/2021 her creatinine was 1.28; BUN was 26. Estimated GFR was 42.2. On 10/02/2021 creatinine was 1.28. BUN was 2 PLAN: Plan DC home.
[2022-01-18 07:46] LABS: Anion Gap 6 (5-15); BUN 29 mg/dL (7-18); BUN/Creat Ratio 20.6 RATIO (10-20); Calcium,Total 8.3 mg/dL (8.5-10.1); Chloride 108 mmol/L (98-107); Creatinine, Serum 1.41 mg/dL (0.55-1.02); EST Glomerular Filtration Rate 39 mL/min (>60); Est Glom Filt Rate - Afr Amer 47 mL/min (>60); Estimated Creatinine Clearance 32.06 ml/min; Free T3 1.8 pg/mL (2.18-3.98); Glucose 95 mg/dL (74-106); Potassium 4.3 mmol/L (3.5-5.1); Sodium Level 138 mmol/L (136-145); T4 Free Direct 1.11 ng/dL (0.76-1.46)
--- NOTE | 2022-01-18 08:45 | PN.CARD_ITS ---
Subjective Subjective The patient is awake and alert. She states she feels so much better since the synchronized biphasic DC cardioversion regain sinus rhythm. She states she does not realize how bad she feels when she is in atrial fibrillation. Objective Data Vital Signs: Vital Signs Temp Pulse Resp BP Pulse Ox O2 Del Method O2 Flow Rate 97 F L 69 17 152/69 H 97 Room Air 2 01/18/22 08:00 01/18/22 08:00 01/18/22 08:00 01/18/22 08:00 01/18/22 08:00 01/18/22 08:00 01/18/22 05:00 Oxygen Flow Rate (L/min) 2 Oxygen Delivery Method Room Air Weight: 283 lb 8.231 oz Body Mass Index (BMI) 48.6 Intake & Output: Intake and Output for Last 24 Hours 01/16/22 01/17/22 01/18/22 23:59 23:59 23:59 Intake Total 1000 / 1000 3509.56 / 4168.76 1706.10 / 1706.10 Balance 1000 / 1000 3509.56 / 4168.76 1706.10 / 1706.10 Lab / Micro Data Result Diagrams: 01/17/22 02:55 01/18/22 04:46 Labs: Laboratory Results - last 24 hr 01/18/22 04:46: Sodium 138, Potassium 4.3, Chloride 108 H, Carbon Dioxide 24.0, Anion Gap 6, BUN 29 H, Creatinine 1.41 H, Estim Creat Clear Calc 32.06, Est GFR (MDRD) Af Amer 47 L, Est GFR (MDRD) Non-Af 39 L, BUN/Creatinine Ratio 20.6 H, Glucose 95, Calcium 8.3 L, Free T4 1.11, Free T3 pg/dL 1.8 L Rhythm Strip Rhythm Strip: A-fib Cardiology Labs/Tests 01/18/22 04:46: Sodium 138, Potassium 4.3, Chloride 108 H, Carbon Dioxide 24.0, Anion Gap 6, BUN 29 H, Creatinine 1.41 H, Est GFR (MDRD) Af Amer 47 L, Est GFR (MDRD) Non-Af 39 L, BUN/Creatinine Ratio 20.6 H, Glucose 95, Calcium 8.3 L Rhythm: Sinus rhythm Chest CT Scan: Physical Exam Narrative This is a 71-year-old white female who appears to be resting reasonably comfortably at the moment in no acute distress. Const alert, oriented x3 and no apparent distress Orientation / Consciousness: awake HEENT normocephalic, head/scalp atraumatic and hearing grossly normal bilaterally Eyes PERRL, EOMs intact bilaterally and conjunctivae normal Neck full ROM, supple and no JVD Resp clear to auscultation bilaterally Cardio Palpation: normal PMI Rate: regular rate and tachycardic Rhythm: regular rhythm Heart Sounds: S1 normal and S2 normal GI normal to inspection, nondistended, normoactive bowel sounds Extremity General Extremity: edema bilateral lower extremity Details: mild Skin no rashes or lesions noted Psych mental status grossly normal Assessment & Plan Assessment/Plan (1) Paroxysmal atrial fibrillation with RVR: PLAN: The patient has a longstanding history of recurrent atrial fibrillation/paroxysmal atrial fibrillation. She states she has been treated with multiple rate limiting medications as well as antiarrhythmic medication with amiodarone. She states she was no longer on amiodarone as it did not seem to benefit her in the long run. She believes she has undergone at least 4 synchronized biphasic DC cardioversi ons. She states she has undergone an EPS/RFA. She believes the last time she may have been in atrial fibrillation was in November of this year. She did have an attempt at regaining sinus rhythm with rate control and IV amiodarone therapy. She remained in atrial fibrillation. She subsequently underwent evaluation care with synchronized biphasic DC cardioversion. She regained sinus rhythm. At the present time she will continue rate control therapy, an attempt at antiarrhythmic therapy with amiodarone pending further evaluation by her chimney repairer, and anticoagulant therapy. As previously noted, she may need to be considered for an AV node ablation with permanent pacemaker support. (2) S/P AVR (aortic valve replacement): PLAN: She states she has been diagnosed with a bicuspid aortic valve which progressively became stenotic over time. She states she underwent AVR in the past at the [facility]. An attempt will be made to obtain cardiovascular records for continuity of care. (3) S/P CABG (coronary artery bypass graft): PLAN: She states that she underwent a single-vessel CABG in the past at the time of her AVR. Again an attempt was made to obtain her previous [facility] records for continuity of care. (4) Elevated troponin: PLAN: She has had a mildly elevated troponin. This may be a type II event brought out by her atrial dysrhythmia with rapid ventricular response superimposed upon her underlying previously diagnosed cardiovascular disease process. At the moment she is without any symptoms of acute coronary syndrome. She does not appear to have any acute electrocardiographic changes. She will continue medical management. (5) Hyperlipidemia: PLAN: She should continue risk factor evaluation care as deemed appropriate (6) HTN (hypertension): PLAN: Her blood pressure will need to be followed. Her medications can be adjusted accordingly. Addt'l Comments Overall, at the present time, she appears to be symptomatically improved. She will continue medical therapy. She was asked to follow-up with her primary home service demonstrator and her chimney repairer-both at [facility] for her continued cardiovascular care of her atrial fibrillation. She was agreeable to this approach. This note was generated using a voice recognition system and there may be incorrect words, spelling or punctuation that were not noted when reviewing the office note prior to saving. This note was generated using a voice recognition system and there may be incorrect words, spelling or punctuation that were not noted when reviewing the office note prior to saving. Procedure Criteria Type of Procedure Procedure Type: Elective Elective Risks - COVID COVID Risk Discussion: The surgeon/proceduralist and patient have discussed in detail the risk of exposure to and/or potential harm posed by the COVID-19 virus with having a surgery/procedure at this time versus the risk of delaying the surgery/procedure. It is not possible to know either the risk of delaying the surgery or procedure or chance of getting an infection with perfect accuracy, but a joint decision was made between the patient and the surgeon/proceduralist to proceed at this time with the scheduled surgery/procedure as indicated on the consent form.
[2022-01-18] MEDS: Aspirin E.C. 81 MG Tablet PO (09:07)
[2022-01-18] MEDS: APIXABAN 5 MG TABLET PO (09:07)
[2022-01-18] MEDS: Metoprolol(XL)Succ 50 MG Tablet PO (09:07)
[2022-01-18] MEDS: Amiodarone 200 MG Tablet PO (09:44)
--- NOTE | 2022-01-18 10:41 | DCINST_ITS ---
Discharge Instructions Diet Discharge Diet: Low fat / Low cholesterol Activity Discharge Activity: Return to Normal Activity Dressing / Incision Call your doctor if you observe: Shortness of breath and Increased palpitations (irregular heartbeat) Follow Up Care Test Results: Test results from this visit will be discussed in further detail at your follow- up appointment, if applicable. Discharge Plan Admission Admit Date/Time: 01/16/22 23:17 Primary Reason for Your Visit: atrial fibrillation with RVR Attending Provider: Dario Gomez Primary Care Provider: Ramiro Davis Consulting Providers: Beau Noe ; Pino Mena Discharge Orders/Prescriptions Prescriptions: New amiodarone 200 mg Tablet 200 mg PO Q12H Qty: 60 0RF Rx Instructions: TID for 1 week, then BID for 1 week, then daily metoprolol succinate 50 mg Tablet Extended Release 24 Hr 50 mg PO DAILY Qty: 30 0RF Continued aspirin 81 mg Tablet,Delayed Release (Dr/Ec) 81 mg PO DAILY Eliquis 5 mg Tablet 5 mg PO DAILY Discontinued metoprolol succinate 25 mg tablet extended release 24 hr 25 tab PO BID Label Comments: TAKE 1 TABLET BY MOUTH EVERY DAY Referrals / Follow Up: ELIESER ADEN MD [NON-STAFF] - Within 1 Month Ramiro Davis MD [Primary Care Provider] - Within 2 Weeks Disposition Disposition (needs filled in before D/C Order can be placed): Home, Self Care
--- NOTE | 2022-01-18 10:47 | DS.PCM_ITS ---
Providers Date of Admission: 01/16/22 Primary Care Physician: Dr. Ramiro Davis MD Consultations 01/17/22 02:17 Consult: Cardiology Routine Consulting Provider: Beau Noe Reason for Consult: A. fib with RVR EMERGENT Consult: No MD Notified: Yes Date Notified: 01/16/22 Time Notified: 23:25 Method of Notification: ED Physician Initiated Method of Consult:: In-Person Comments:: ED doctor notified cardiology Reason For Visit: AFIB WITH RVR Diagnosis Discharge Diagnosis (1) Paroxysmal atrial fibrillation with RVR: Status: Acute Code(s): I48.0 - Paroxysmal atrial fibrillation Plan: Received Cardizem 20 mg IV push at emergency department. Thereafter patient was hypotensive. Heart rate was oscillating and all over the place. Emergency department doctor discussed the case with cardiology. Started amiodarone bolus and drip. Continue Eliquis. Obtain records from other facility that patient goes. Potassium on presentation was 3.6; replace. Trend BMP. Check Mg and TSH. Review of Record showed on 04/10/2021 patient had an echocardiogram with WAYNE p rior to cardioversion. EF was 65%. Left atrium showed mild dilatation with; mitral valve showed moderate 2+ regurgitation; aortic valve showed normal functioning bioprosthetic valve. Inpatient cardiology consult. Cardioversion 01/17. anticoagulated on apixaban. 01/18: amiodarone gtt dc'd, on PO amiodarone Follow up with Dr. Aden (2) HTN (hypertension): Status: Chronic Code(s): I10 - Essential (primary) hypertension Plan: fair control (3) Elevated troponin: Status: Acute Code(s): R77.8 - Other specified abnormalities of plasma proteins Plan: Initial troponin was 57. Trended to 58. Likely secondary to type II IA from a tachyarrhythmia. Trend. (4) Acute kidney injury superimposed on CKD: Status: Chronic Code(s): N17.9 - Acute kidney failure, unspecified; N18.9 - Chronic kidney disease, uns pecified Plan: ZACKERY on CKD stage IIIb. Creatinine on presentation was 1.78. Review of community records show that on 11/02/2021 her creatinine was 1.28; BUN was 26. Estimated GFR was 42.2. On 10/02/2021 creatinine was 1.28. BUN was 2 Plan DC home. Medications at Discharge Home Medications apixaban 5 mg tablet (Eliquis) 5 mg PO DAILY 01/16/22 aspirin 81 mg tablet,delayed release 81 mg PO DAILY 01/16/22 amiodarone 200 mg tablet 200 mg PO Q12H #60 tabs 01/18/22 metoprolol succinate 50 mg tablet,extended release 24 hr 50 mg PO DAILY #30 tabs 01/18/22 Hospital Course Procedures Cardioversion Summary of Care Provided Minutes Spent on Discharge: 32 Weight / BMI Weight Weight: 128.6 kg Body Mass Index (BMI) 48.6 ABG / Lab / Microbiology Data Result Diagrams: 01/17/22 02:55 01/18/22 04:46 Laboratory: Laboratory Results - last 24 hr 01/18/22 04:46: Sodium 138, Potassium 4.3, Chloride 108 H, Carbon Dioxide 24.0, Anion Gap 6, BUN 29 H, Creatinine 1.41 H, Estim Creat Clear Calc 32.06, Est GFR (MDRD) Af Amer 47 L, Est GFR (MDRD) Non-Af 39 L, BUN/Creatinine Ratio 20.6 H, Glucose 95, Calcium 8.3 L, Free T4 1.11, Free T3 pg/dL 1.8 L Microbiology: Microbiology 01/16/22 20:30 Nasal Secretion SARS-CoV-2 Antigen (Rapid) - Final D/C Instructions Discharge Diet: Low fat / Low cholesterol Call your doctor if you observe: Shortness of breath and Increased palpitations (irregular heartbeat) Meaningful Use Info Meaningful Use Diagnoses (Choose all that apply): None applicable Discharge Plan Admission Admit Date/Time: 01/16/22 23:17 Primary Reason for Your Visit: atrial fibrillation with RVR Attending Provider: Dario Gomez Primary Care Provider: Ramiro Davis Consulting Providers: Beau Noe ; Pino Mena Discharge Orders/Prescriptions Prescriptions: New amiodarone 200 mg Tablet 200 mg PO Q12H Qty: 60 0RF Rx Instructions: TID for 1 week, then BID for 1 week, then daily metoprolol succinate 50 mg Tablet Extended Release 24 Hr 50 mg PO DAILY Qty: 30 0RF Continued aspirin 81 mg Tablet,Delayed Release (Dr/Ec) 81 mg PO DAILY Eliquis 5 mg Tablet 5 mg PO DAILY Discontinued metoprolol succinate 25 mg tablet extended release 24 hr 25 tab PO BID Label Comments: TAKE 1 TABLET BY MOUTH EVERY DAY Referrals / Follow Up: ELIESER ADEN MD [NON-STAFF] - Within 1 Month Ramiro Davis MD [Primary Care Provider] - Within 2 Weeks Disposition Disposition (needs filled in before D/C Order can be placed): Home, Self Care Charges/Coding Visit Charges Inpatient E&M: 73443 Disch Hosp
--- NOTE | 2022-01-18 11:20 | CASEMGMT ---
This RN CM to room to discuss discharge plan with pt and pt declines need for any further therapy at discharge. Pt is requesting to speak with card cleaner and Joellen notified. Pt voices no further questions/concerns/needs. [place] RN CM
== END 2022-01-18 12:06 | disposition home or self-care (01) | DRG 281 ==
LOC: ED 23:32 → PCU 01-17 01:17
PROVIDERS: Admitting Provider Hospitalist; Emergency Provider Student in an Organized Health Care Education/Training Program; PCP Family Medicine
DX: I48.0 Paroxysmal atrial fibrillation (principal); I21.A1 Myocardial infarction type 2; N17.9 Acute kidney failure, unspecified; Z68.42 Body mass index [BMI] 45.0-49.9, adult; N18.32 Chronic kidney disease, stage 3b; E66.01 Morbid (severe) obesity due to excess calories; I12.9 Hypertensive chronic kidney disease with stage 1 through stage 4 chronic kidney disease, or unspecified chronic kidney disease; E78.5 Hyperlipidemia, unspecified; M19.90 Unspecified osteoarthritis, unspecified site; Z79.01 Long term (current) use of anticoagulants; Z79.899 Other long term (current) drug therapy; Z79.82 Long term (current) use of aspirin
CPT/HCPCS: 36415; 71045; 80048; 83735; 83880; 84439; 84443; 84481; 84484; 85025; 87811; 93005; 94762; 99285; J7030; A4216

== ENCOUNTER → 2022-07-24 | Outpatient (CLI) | payer MEDICARE, OTHER, SELFPAY ==
[2022-07-24 15:38] LABS: Absolute Lymphocyte Count 1.09 X10^3/uL (0.83-4.51); Absolute Neutrophil Count 4.1 X10^3/uL (2.0-7.7); Basophil# 0.04 X10^3/uL; Basophil% 0.7 % (0-1); Eosinophil# 0.12 X10^3/uL; Eosinophils% 2.1 % (0-5); Hemoglobin 12.4 g/dL (12.0-15.0); Lymphocyte # 1.09 X10^3/ul (0.83-4.51); Lymphocyte % 19.1 % (19-41); Mean Corp Hgb Conc 31.8 g/dL (32-36); Mean Corpuscular Hgb 27.4 pg (27.0-32.0); Mean Corpuscular Volume 86.3 fL (81-99); Mean Platelet Vol. 9.3 fl (6.2-12.0); Monocyte# 0.32 X10^3/uL; Monocyte% 5.6 % (0-10); NRBC Flagged by Analyzer 0 % (0-5); Neutrophil # 4.12 X10^3/uL (2.7-7.7); Neutrophil % 72.1 % (47-70); Platelet Count 300 K/mm3 (150-450); RBC Distribution Width SD 47.5 fl (35.1-43.9); Red Blood Count 4.52 M/mm3 (4.2-5.4); White Blood Count 5.7 K/mm3 (4.4-11.0)
[2022-07-24 15:57] LABS: ALB/GLOB Ratio 0.9 RATIO (0.9-2.4); AST(SGOT) 13 U/L (15-37); Alanine Aminotransfer ALT/SGPT 22 U/L (13-56); Albumin, Serum 3.3 g/dL (3.2-5.0); Alkaline Phosphatase 120 U/L (45-117); Anion Gap 7 (5-15); BUN 24 mg/dL (7-18); BUN/Creat Ratio 19.5 RATIO (10-20); Chloride 108 mmol/L (98-107); Creatinine, Serum 1.23 mg/dL (0.55-1.02); EST Glomerular Filtration Rate 46 mL/min (>60); Est Glom Filt Rate - Afr Amer 55 mL/min (>60); Globulin 3.7 g/dL (2.2-4.2); Glucose 101 mg/dL (74-106); Potassium 3.9 mmol/L (3.5-5.1); Rheumatoid Factor < 10.0 IU/mL (<15); Sodium Level 142 mmol/L (136-145)
[2022-07-24 16:08] LABS: Erythrocyte Sedimentation Rate 45 mm/hr (0-30)
[2022-07-24 16:44] LABS: Hepatitis B Surface Antibody Non-Reactive; Hepatitis B Surface Antigen Non-Reactive (Nonreactive); Hepatitis C Antibody Non-Reactive (Nonreactive)
[2022-07-26 17:32] LABS: ANTINUCLEAR ANTIBODIES DIRECT Negative (Negative)
[2022-07-26 21:58] LABS: CCP IgG Antibodies 8 units (0-19)
== END | disposition home or self-care (01) ==
LOC: MTLAB 14:25
PROVIDERS: PCP Family Medicine; Referring Provider Internal Medicine Rheumatology; Visit Provider Internal Medicine Rheumatology
DX: M06.4 Inflammatory polyarthropathy (principal); I50.30 Unspecified diastolic (congestive) heart failure; I11.0 Hypertensive heart disease with heart failure; I48.0 Paroxysmal atrial fibrillation; M79.7 Fibromyalgia; M19.041 Primary osteoarthritis, right hand; M17.0 Bilateral primary osteoarthritis of knee; M19.171 Post-traumatic osteoarthritis, right ankle and foot; I25.10 Atherosclerotic heart disease of native coronary artery without angina pectoris; E78.5 Hyperlipidemia, unspecified; Z87.442 Personal history of urinary calculi; Z95.2 Presence of prosthetic heart valve; M21.41 Flat foot [pes planus] (acquired), right foot
CPT/HCPCS: 36415; 80053; 85025; 85652; 86038; 86140; 86200; 86431; 86706; 86803; 87340

== ENCOUNTER → 2022-10-08 | Outpatient (CLI) | payer MEDICARE, OTHER, SELFPAY ==
[2022-10-08 18:04] LABS: Absolute Lymphocyte Count 1.49 X10^3/uL (0.83-4.51); Absolute Neutrophil Count 4.2 X10^3/uL (2.0-7.7); Basophil# 0.06 X10^3/uL; Basophil% 0.9 % (0-1); Eosinophil# 0.15 X10^3/uL; Eosinophils% 2.3 % (0-5); Hematocrit 38.9 % (37-47); Hemoglobin 12.1 g/dL (12.0-15.0); Lymphocyte # 1.49 X10^3/ul (0.83-4.51); Lymphocyte % 23.3 % (19-41); Mean Corp Hgb Conc 31.1 g/dL (32-36); Mean Corpuscular Hgb 27.9 pg (27.0-32.0); Mean Corpuscular Volume 89.8 fL (81-99); Mean Platelet Vol. 10.1 fl (6.2-12.0); Monocyte# 0.52 X10^3/uL; Monocyte% 8.1 % (0-10); NRBC Flagged by Analyzer 0 % (0-5); Neutrophil # 4.16 X10^3/uL (2.7-7.7); Neutrophil % 65.1 % (47-70); Platelet Count 270 K/mm3 (150-450); RBC Distribution Width CV 15.2 % (11.6-14.6); RBC Distribution Width SD 50.7 fl (35.1-43.9); Red Blood Count 4.33 M/mm3 (4.2-5.4); White Blood Count 6.4 K/mm3 (4.4-11.0)
[2022-10-08 18:06] LABS: Erythrocyte Sedimentation Rate 18 mm/hr (0-30)
[2022-10-08 18:49] LABS: ALB/GLOB Ratio 0.8 RATIO (0.9-2.4); AST(SGOT) 16 U/L (15-37); Alanine Aminotransfer ALT/SGPT 23 U/L (13-56); Albumin, Serum 3.3 g/dL (3.2-5.0); Alkaline Phosphatase 143 U/L (45-117); Anion Gap 6 (5-15); BUN 34 mg/dL (7-18); BUN/Creat Ratio 23.8 RATIO (10-20); Calcium,Total 9.5 mg/dL (8.5-10.1); Chloride 105 mmol/L (98-107); Creatinine, Serum 1.43 mg/dL (0.55-1.02); EST Glomerular Filtration Rate 38 mL/min (>60); Est Glom Filt Rate - Afr Amer 47 mL/min (>60); Globulin 4.2 g/dL (2.2-4.2); Glucose 110 mg/dL (74-106); Protein, Total 7.5 g/dL (6.4-8.2); Sodium Level 139 mmol/L (136-145)
== END | disposition home or self-care (01) ==
LOC: MTLAB 16:36
PROVIDERS: PCP Family Medicine; Visit Provider Internal Medicine Rheumatology
DX: M06.4 Inflammatory polyarthropathy (principal); M79.7 Fibromyalgia
CPT/HCPCS: 36415; 80053; 85025; 85652; 86140